=== PATIENT | female | born 1995 | race Caucasian/White ===

== ENCOUNTER 2020-12-05 07:47 | Outpatient (CLI) | payer OTHER, SELFPAY ==
--- NOTE | ~2020-12-05 | US_ITS ---
EXAMINATION: US abdomen complete DATE: 12/05/2020 09:41 INDICATION: Abdominal pain TECHNIQUE: Multiple grayscale and Doppler ultrasound images of the abdomen were obtained. COMPARISON: 02/01/2019 FINDINGS: The head, body, and tail of the pancreas are normal. The liver is normal with normal echoge nicity and echotexture. No surface nodularity. Normal hepatopetal flow in the main portal vein. A sto ne is present in the gallbladder. There is no pericholecystic fluid or gallbladder wall thickening. T he normal common bile duct measures 2 mm. There was no sonographic Li sign. The visualized portio ns of the aorta and inferior vena cava are normal. The right kidney measures 9.4 x 4.7 x 3.5 cm. The left kidney measures 11.6 x 4 x 4.1 cm. The kidneys demonstrate normal parenchymal echogenicity. There is no hydronephrosis. The spleen is normal in roberto carlos earance and measures 12.1 cm. IMPRESSION: 1. Cholelithiasis without evidence of cholecystitis. Reviewed, dictated and finalized at location A.
--- NOTE | ~2020-12-05 | US_ITS ---
EXAMINATION: US pelvic complete DATE: 12/05/2020 09:41 INDICATION: Abdominal pain TECHNIQUE: Multiple transabdominal sonographic images of the pelvis were obtained. COMPARISON: None. FINDINGS: The uterus measures 7.8 x 4.8 x 5.8 cm. The endometrial complex measures 7 mm. The right ov maine measures 3.4 x 1.5 x 2.1 cm. The left ovary measures 3.3 x 2.6 x 1.4 cm. There is normal vascular flow in the ovaries. There is no free fluid in the pelvis. IMPRESSION: 1. No sonographic correlate for the patient's symptoms. Reviewed, dictated and finalized at location A.
== END 2020-12-05 07:48 | disposition home or self-care (01) ==
LOC: ANHIMG 07:53
PROVIDERS: PCP Nurse Practitioner Family; Visit Provider Nurse Practitioner Family
DX: R10.9 Unspecified abdominal pain (principal); K80.20 Calculus of gallbladder without cholecystitis without obstruction
CPT/HCPCS: 76700; 76856

== ENCOUNTER 2021-04-29 15:48 | Emergency (ER) | payer OTHER, SELFPAY ==
[2021-04-29 15:55] VITALS: BP 112/60; PULSE 73; RESP 16; TEMP 37.1; O2SAT 100
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
== END 2021-04-29 16:58 | disposition home or self-care (01) ==
PROVIDERS: Emergency Provider Registered Nurse
DX: F41.9 Anxiety disorder, unspecified (principal); F32.A Depression, unspecified; F17.200 Nicotine dependence, unspecified, uncomplicated
CPT/HCPCS: 99213; G0463

== ENCOUNTER 2021-05-01 01:46 | Emergency (ER) | payer OTHER, SELFPAY ==
[2021-05-01 02:13] VITALS: BP 103/55; PULSE 69; RESP 18; O2SAT 100
--- NOTE | 2021-05-01 02:22 | ED.ANXIETY ---
HPI - Anxiety General Chief Complaint: Anxiety Stated Complaint: Panic attacks x2 Time Seen by Provider: 05/01/21 01:59 Source: patient Mode of arrival: ambulatory Limitations: no limitations History of Present Illness HPI narrative: Patient is a 25-year-old female complaining of having an anxiety attack which she describes as can't sleep, cannot breathe, my heart is racing, my arms are hurting, tingling started yesterday, was seen in urgent care was given sertraline. Patient states that she is had similar episodes in the past but usually will resolve on its own. Patient denies any suicidal or homicidal thoughts. Related Data Allergies Allergy/AdvReac Type Severity Reaction Status Date / Time Penicillins Allergy Intermediate rash Verified 05/01/21 02:29 Review of Systems Review of Systems: All systems reviewed & are unremarkable except as noted in HPI and below Constitutional: Constitutional: Denies body ache(s), Denies chills, Denies excessive sweating, Denies fatigue, Denies fever(s), Denies headache(s), Denies lethargy, Denies malaise, Denies weakness and Denies weight loss Eyes: Eyes: Denies blurry vision, Denies change in vision and Denies loss of vision ENT: Denies dizziness, Denies ear discharge, Denies headache(s), Denies lip swelling, Denies epistaxis, Denies nasal congestion, Denies neck pain, Denies throat swelling and Denies tongue swelling Cardiovascular: Cardiovascular: Denies chest pain, Denies chest pain at rest, Denies chest pain with activity, Denies diaphoresis, Denies rapid heart rate, Denies edema, Denies irregular heart rhythm, Denies lightheadedness, Denies palpitations, Denies dyspnea and Denies dyspnea on exertion Respiratory: Respiratory: Denies chest congestion, Denies cough, Denies hemoptysis, Denies dyspnea and Denies dyspnea on exertion Gastrointestinal: Gastrointestinal: Denies abdominal pain, Denies melena, Denies hematochezia, Denies diarrhea, Denies nausea, Denies vomiting and Denies hematemesis Musculoskeletal: Musculoskeletal: Denies abnormal gait, Denies deformity, Denies joint swelling, Denies limited range of motion, Denies neck pain and Denies numbness Neurologic: Denies Abnormal speech present, Denies abnormal gait, Denies confusion, Denies dizziness, Denies headache(s), Denies focal weakness, Denies loss of vision, Denies numbness, Denies Other visual disturbances, Denies Sensory deficit (Neuro) and Denies weakness Psychiatric: Psychiatric: Denies confusion, Denies depression, Denies auditory hallucinations, Denies homicidal ideation and Denies suicidal ideation Endocrine: Endocrine: Denies cold intolerance, Denies excessive sweating, Denies fatigue, Denies heat intolerance and Denies palpitations Hematologic/Lymphatic: Hematologic/Lymphatic: Denies easy bleeding and Denies easy bruising Allergic/Immunologic: Allergic/Immunologic: Denies lip swelling, Denies throat swelling and Denies tongue swelling PMFSH Past Medical History Medical History Anxiety and depression Surgical History Surgical History No history of previous surgery Family History Family History Sibling Depression Mother Anxiety Social History Social History Tobacco type: e-cigarettes/vaping Alcohol intake: current Alcohol use details: rare social Substance use type: does not use Additional living arrangements comments: with boyfriend and 2 children Gender identity (if verbalized by the patient): Female Exam Const: General: cooperative, healthy appearing, comfortable, no acute distress, well developed, alert and awake; No confusion Orientation/consciousness: oriented to person, oriented to place, oriented to time, patient oriented x3 and No confusion Limitations: no limita
[2021-05-01] MEDS: LORazepam (*CRX) 1 MG TABLET PO (02:41)
[2021-05-01 03:25] VITALS: BP 104/74; PULSE 68; RESP 16; O2SAT 100
== END 2021-05-01 03:30 | disposition home or self-care (01) ==
PROVIDERS: Emergency Provider Emergency Medicine
DX: F41.9 Anxiety disorder, unspecified (principal); F32.A Depression, unspecified; F17.290 Nicotine dependence, other tobacco product, uncomplicated
CPT/HCPCS: 81025; 99283; A9270

== ENCOUNTER 2022-08-19 13:17 | Emergency (ER) | payer OTHER, SELFPAY ==
--- NOTE | ~2022-08-19 | XR_ITS ---
EXAMINATION: XR chest 2V DATE: 08/19/2022 15:16 INDICATION: Cough and shortness of breath. TECHNIQUE: Frontal and lateral views of the chest were obtained. COMPARISON: None. FINDINGS: The chest demonstrates clear lungs without pneumonia, pleural effusion, or pneumothorax. Th e heart size is normal. IMPRESSION: 1. No acute cardiopulmonary disease. Reviewed, dictated and finalized at location A. [facility]
[2022-08-19 13:29] VITALS: BP 115/61; PULSE 84; RESP 12; TEMP 36.8; O2SAT 100
--- NOTE | 2022-08-19 15:07 | ED.ANXIETY ---
HPI - Anxiety General Chief Complaint: Anxiety Stated Complaint: panic attacks x3 weeks Time Seen by Provider: 08/19/22 13:39 History of Present Illness HPI narrative: Patient is a 26-year-old female with a history of anxiety presenting with multiple complaints. Patient states over the last several weeks she has been experiencing generalized malaise, fatigue, body aches. States that she has had intermittent muscle cramps especially in her arms. Also complains of bilateral ear and sinus pain with rhinorrhea. Patient states that she has had increasingly frequent panic attacks over the last 3 weeks. States that she has had panic attacks in the past but she has had increasing difficulty with coping with them. States that she has an appointment with a order fulfillment specialist next month. Complains of intermittent chest discomfort that is improved with deep breathing and changes in position. Denies exertional chest pain. Denies fevers, numbness or weakness, syncope, abdominal pain, vomiting, constipation, dysuria, leg swelling. Reports some diarrhea. Related Data Allergies Allergy/AdvReac Type Severity Reaction Status Date / Time Penicillins Allergy Intermediate rash Verified 05/01/21 02:29 Review of Systems Review of Systems: All systems reviewed & are unremarkable except as noted in HPI and below PMFSH Past Medical History Medical History Anxiety and depression Surgical History Surgical History No history of previous surgery Family History Family History Sibling Depression Mother Anxiety Social History Social History Tobacco type: e-cigarettes/vaping Alcohol intake: current Alcohol use details: rare social Substance use type: does not use Additional living arrangements comments: with boyfriend and 2 children Gender identity (if verbalized by the patient): Female Exam Narrative: GENERAL: Well-appearing, well-nourished, and in no acute distress. HEAD: Normocephalic, atraumatic. EYES: PERRLA and EOMI. ENT: Nares clear, no rhinorrhea or epistaxis. Mucous membranes moist. NECK: Supple. CHEST: Clear to auscultation. No respiratory distress. HEART: Regular rate and rhythm. No murmur heard. Normal peripheral pulses. ABDOMEN: Soft, nontender, nondistended, normal active bowel sounds. EXTREMITIES: Normal range of motion. No edema. SKIN: Warm, dry, no rash. NEURO: No focal deficits. Alert and oriented x3. PSYCH: Normal mood and affect. Course Vital Signs Vital signs: Vital Signs Temperature 98.2 F 08/19/22 13:29 Pulse Rate 84 08/19/22 13:29 Respiratory Rate 12 08/19/22 13:29 Blood Pressure 115/61 08/19/22 13:29 Pulse Oximetry 100 08/19/22 13:29 Oxygen Delivery Room Air 08/19/22 13:29 Temperature 98.8 F 08/19/22 17:10 Pulse Rate 70 08/19/22 17:10 Respiratory Rate 18 08/19/22 17:10 Blood Pressure 108/64 08/19/22 17:10 Pulse Oximetry 100 08/19/22 17:10 Oxygen Delivery Room Air 08/19/22 13:29 MDM - Anxiety MDM Narrative Medical decision making narrative: Patient is a 26-year-old female presenting with multiple complaints. Vitals within normal limits. Patient is well-appearing in no acute distress. Exam remarkable for the above. Blood work is unremarkable. Normal electrolytes and renal function. No leukocytosis or anemia. Chest x-ray without acute abnormalities. Patient is negative for COVID and influenza. Patient is resting comfortably on reevaluation. Discussed the reassuring work-up. Patient has follow-up with her PCP in 2 weeks which she was advised to keep. Appropriate return precautions given. Patient voiced understanding and was agreeable with plan. Discharged in stable condition. Differential Diag
[2022-08-19] MEDS: SODIUM CHLORIDE 0.9% IV 1,000 ML 999 ML IV CONT (15:25)
[2022-08-19 15:34] LABS: Basophils Percent Auto 0.7 % (0.2-1.2); Eosinophils Absolute Auto 0.1 K/mm3 (0-0.3); Eosinophils Percent Auto 1.5 % (0-4.4); Hematocrit 40.3 % (37.0-47.0); Hemoglobin 13.7 g/dL (12.0-15.0); Immature Granulocyte Absolute 0.02 K/mm3 (0.00-0.031); Immature Granulocyte Percent A 0.4 % (0-0.5); Lymphocytes Absolute Auto 1.89 K/mm3 (0.9-3.2); Lymphocytes Percent Auto 34.4 % (18.3-44.2); Mean Corpuscular Hemoglobin 31.1 pg (26-34); Mean Corpuscular Volume 91.4 fl (80-100); Mean Platelet Volume 10.5 fl (7.4-10.4); Monocytes Absolute Auto 0.5 K/mm3 (0.1-0.6); Monocytes Percent Auto 9.1 % (2.6-8.5); Neutrophils Percent Auto 53.9 % (45.5-73.1); Platelet Count Result 248 k/mm3 (150-375); Red Blood Count 4.41 M/mm3 (4.2-5.4); Red Cell Distribution Width 11.5 % (11.5-14.5); White Blood Count 5.5 K/mm3 (4.5-10.0)
[2022-08-19 15:59] LABS: Alanine Aminotransferase 39 U/L (6-35); Alkaline Phosphatase 51 U/L (38-126); Anion Gap 8 mmol/L (8-16); Aspartate Amino Transferase 39 U/L (14-36); Bilirubin,Total 1.4 mg/dL (0.2-1.3); Blood Urea Nitrogen 16 mg/dL (7-17); Calcium 9.3 mg/dL (8.4-10.2); Carbon Dioxide 26 mmol/L (22-30); Chloride 100 mmol/L (98-107); Estimated CRCL calculation 111 ml/min; Estimated Glomerular Filt Rate > 60; Glucose 84 mg/dL (65-110); Magnesium 2.2 mg/dL (1.6-2.3); Potassium 4.7 mmol/L (3.4-5.0); Sodium 134 mmol/L (137-145)
[2022-08-19 16:10] LABS: Influenza A QL RT-PCR Negative (Negative); Influenza B QL RT-PCR Negative (Negative); RSV RNA, RT-PCR Negative (Negative); SARS-CoV-2 RNA PCR Negative
[2022-08-19 17:10] VITALS: BP 108/64; PULSE 70; RESP 18; TEMP 37.1; O2SAT 100
== END 2022-08-19 17:14 | disposition home or self-care (01) ==
PROVIDERS: Emergency Provider Emergency Medicine
DX: R25.2 Cramp and spasm (principal); R53.81 Other malaise; F41.0 Panic disorder [episodic paroxysmal anxiety]; Z20.822 Contact with and (suspected) exposure to COVID-19
CPT/HCPCS: 36415; 71046; 80053; 83735; 84443; 85025; 87637; 96360; 99283; J7030

== ENCOUNTER 2022-08-25 00:50 | Emergency (ER) | payer OTHER, SELFPAY ==
[2022-08-25 00:52] VITALS: BP 112/78; PULSE 90; RESP 18; TEMP 36.3; O2SAT 100
--- NOTE | 2022-08-25 00:57 | ECG_ITS ---
Measurements Intervals [place] Rate: 84 P: 61 [place]: 197 QRS: 73 QRSD: 96 T: 50 QT: 370 QTc: 438 Interpretive Statements SINUS RHYTHM NONSPECIFIC T-WAVE ABNORMALITY COMPARED TO ECG 10/14/2018 11:03:08 NO SIGNIFICANT CHANGES Electronically Signed On 08-25-2022 16:18:39 [employer] by Lyle Escobedo M.D.
--- NOTE | 2022-08-25 02:35 | PC.NURSE ---
pt states she had several panic attacks over past few weeks because she has a lot going on. states tonight she had one had and had palpitations with it so it made attack worse. states she feels better now but was concerned because she has never had palpitations with them. states she doesn't take any meds for anxiety but has an appointment on 09/21 for an evaluation.
--- NOTE | 2022-08-25 03:10 | ED.GENADULT ---
HPI - General Adult General Chief complaint: Arrhythmia/Palpitations Stated complaint: palpitations, anxiety Time Seen by Provider: 08/25/22 02:59 History of Present Illness HPI narrative: Is a 26-year-old female who presents emergency department chief complaint of palpitations. The patient reports that she has history of anxiety and is scheduled to see a mental health professional later this month. The patient states that she has been having increased panic attacks and reports this evening she had an episode where she felt as though the world was giving out on her and felt as though her heart was beating out of her chest. There is no radiation to her arm. Related Data Allergies Allergy/AdvReac Type Severity Reaction Status Date / Time Penicillins Allergy Intermediate rash Verified 05/01/21 02:29 Review of Systems Review of Systems: A 10 system review of systems was completed on the patient and is negative except for what is stated in the HPI. Nursing and ancillary documentation was reviewed. [facility] Past Medical History Medical History Anxiety and depression Surgical History Surgical History No history of previous surgery Family History Family History Sibling Depression Mother Anxiety Social History Social History Tobacco type: e-cigarettes/vaping Alcohol intake: current Alcohol use details: rare social Substance use type: does not use Additional living arrangements comments: with boyfriend and 2 children Gender identity (if verbalized by the patient): Female Exam Narrative: GENERAL: Well-appearing, well-nourished, and in no acute distress. HEAD: Normocephalic, atraumatic. EYES: PERRLA and EOMI. ENT: Nares clear, no rhinorrhea or epistaxis. Mucous membranes moist. NECK: Supple. CHEST: Clear to auscultation. No respiratory distress. HEART: Regular rate and rhythm. No murmur heard. Normal peripheral pulses. ABDOMEN: Soft, nontender, nondistended, normal active bowel sounds. EXTREMITIES: Normal range of motion. No edema. SKIN: Warm, dry, no rash. NEURO: No focal deficits. Alert and oriented x3. PSYCH: Normal mood and affect. Course Vital Signs Vital signs: Vital Signs Temperature 36.3 C L 08/25/22 00:52 Pulse Rate 90 08/25/22 00:52 Respiratory Rate 18 08/25/22 00:52 Blood Pressure 112/78 08/25/22 00:52 Pulse Oximetry 100 08/25/22 00:52 Oxygen Delivery Room Air 08/25/22 00:52 Temperature 36.3 C L 08/25/22 00:52 Pulse Rate 90 08/25/22 00:52 Respiratory Rate 18 08/25/22 00:52 Blood Pressure 112/78 08/25/22 00:52 Pulse Oximetry 100 08/25/22 00:52 Oxygen Delivery Room Air 08/25/22 00:52 Medical Decision Making MDM Narrative Medical decision making narrative: EKG is sinus rhythm rate of [address] elevation or ST depression. Patient is currently asymptomatic. Patient does report that she has had significant anxiety the patient will be started on hydroxyzine in the emergency department Patient denies suicidal or homicidal ideation. Vital Signs Vital Signs: Vital Signs Temperature 36.3 C L 08/25/22 00:52 Pulse Rate 90 08/25/22 00:52 Respiratory Rate 18 08/25/22 00:52 Blood Pressure 112/78 08/25/22 00:52 Pulse Oximetry 100 08/25/22 00:52 Oxygen Delivery Room Air 08/25/22 00:52 Temperature 36.3 C L 08/25/22 00:52 Pulse Rate 90 08/25/22 00:52 Respiratory Rate 18 08/25/22 00:52 Blood Pressure 112/78 08/25/22 00:52 Pulse Oximetry 100 08/25/22 00:52 Oxygen Delivery Room Air 08/25/22 00:52 Discharge Plan Discharge Clinical Impression: Palpitations, Anxiety Patient Disposition: Home, Self-Care Condition: Stable Instructions: Antibiotic Form,
[2022-08-25 03:21] VITALS: BP 105/71; PULSE 72; RESP 16; O2SAT 100
== END 2022-08-25 03:26 | disposition home or self-care (01) ==
PROVIDERS: Emergency Provider Emergency Medicine; PCP Family Medicine
DX: R00.2 Palpitations (principal); F41.9 Anxiety disorder, unspecified; R94.31 Abnormal electrocardiogram [ECG] [EKG]; F17.290 Nicotine dependence, other tobacco product, uncomplicated
CPT/HCPCS: 93005; 99283

== ENCOUNTER 2022-11-01 15:18 | Emergency (ER) | payer OTHER, SELFPAY ==
[2022-11-01] VITALS (13 sets, daily range): BP systolic 104–122; BP diastolic 54–69; PULSE 85–110; RESP 13–31; TEMP 36.4–36.5; O2SAT 100
[2022-11-01] MEDS: ONDANSETRON INJ 4 MG/2 ML VIAL IV PUSH (16:16)
[2022-11-01] MEDS: SODIUM CHLORIDE 0.9% IV 1,000 ML 999 ML IV CONT (16:17)
[2022-11-01 16:25] LABS: Basophils Absolute Auto 0.1 K/mm3 (0.0-0.1); Basophils Percent Auto 0.5 % (0.2-1.2); Eosinophils Absolute Auto 0.1 K/mm3 (0-0.3); Eosinophils Percent Auto 0.7 % (0-4.4); Hemoglobin 13.5 g/dL (12.0-15.0); Immature Granulocyte Absolute 0.03 K/mm3 (0.00-0.031); Immature Granulocyte Percent A 0.3 % (0-0.5); Lymphocytes Absolute Auto 1.12 K/mm3 (0.9-3.2); Lymphocytes Percent Auto 9.5 % (18.3-44.2); Mean Corpuscular HGB Conc 33.8 g/dl (32-36); Mean Platelet Volume 10.3 fl (7.4-10.4); Monocytes Absolute Auto 0.9 K/mm3 (0.1-0.6); Neutrophils Absolute Auto 9.6 K/mm3 (1.3-6.7); Platelet Count Result 240 k/mm3 (150-375); Red Blood Count 4.35 M/mm3 (4.2-5.4); Red Cell Distribution Width 12.2 % (11.5-14.5); White Blood Count 11.8 K/mm3 (4.5-10.0)
[2022-11-01 16:33] LABS: Alanine Aminotransferase 19 U/L (6-35); Alkaline Phosphatase 49 U/L (38-126); Anion Gap 10 mmol/L (8-16); Aspartate Amino Transferase 33 U/L (14-36); Bilirubin,Total 1.2 mg/dL (0.2-1.3); Blood Urea Nitrogen 8 mg/dL (7-17); Calcium 8.7 mg/dL (8.4-10.2); Carbon Dioxide 27 mmol/L (22-30); Chloride 102 mmol/L (98-107); Estimated CRCL calculation 110 ml/min; Estimated Glomerular Filt Rate > 60; Glucose 86 mg/dL (65-110); Lipase 49 U/L (23-300); Potassium 3.9 mmol/L (3.4-5.0); Sodium 139 mmol/L (137-145)
--- NOTE | 2022-11-01 17:14 | ED.GENADULT ---
HPI - General Adult General Chief complaint: Anxiety Stated complaint: panic attack Time Seen by Provider: 11/01/22 15:54 History of Present Illness HPI narrative: Patient is a 27-year-old female who presents ER with an upset stomach and nausea. Patient reports she went out drinking last night for her birthday. She had 7 shots of alcohol and then several mixed drinks. She then felt bad today and had a panic attack despite taking her panic attack medication. She reports it was a bad event and she felt numb. She feels improved from the anxiety at this time but is still feeling nauseous and weak. No history of pancreatitis. Related Data Allergies Allergy/AdvReac Type Severity Reaction Status Date / Time Penicillins Allergy Intermediate rash Verified 11/01/22 17:21 Review of Systems Constitutional: Constitutional: Denies chills, Reports fatigue and Denies fever(s) ENT: Denies nasal congestion and Denies sore throat Respiratory: Respiratory: Denies cough and Denies dyspnea Gastrointestinal: Gastrointestinal: Reports abdominal pain, Reports nausea and Denies vomiting Psychiatric: Psychiatric: Reports anxiety PMFSH Past Medical History Medical History Anxiety and depression Surgical History Surgical History No history of previous surgery Family History Family History Sibling Depression Mother Anxiety Social History Social History Tobacco type: e-cigarettes/vaping Alcohol intake: current Alcohol use details: rare social Substance use type: does not use Additional living arrangements comments: with boyfriend and 2 children Gender identity (if verbalized by the patient): Female Exam Narrative: GENERAL: Well-appearing, well-nourished, and in no acute distress. HEAD: Normocephalic, atraumatic. ENT: Mucous membranes moist. CHEST: Clear to auscultation. No respiratory distress. HEART: Regular rate and rhythm. Normal peripheral pulses. ABDOMEN: Soft, nontender, nondistended. EXTREMITIES: Normal range of motion. No edema. SKIN: Warm, dry, no rash. NEURO: Alert and oriented x3. PSYCH: Normal mood and affect. Course Vital Signs Vital signs: Vital Signs Temperature 97.7 F 11/01/22 15:23 Pulse Rate 110 H 11/01/22 15:23 Respiratory Rate 20 11/01/22 15:23 Blood Pressure 122/54 L 11/01/22 15:23 Pulse Oximetry 100 11/01/22 15:23 Oxygen Delivery Room Air 11/01/22 15:23 Temperature 97.7 F 11/01/22 15:23 Pulse Rate 87 11/01/22 17:23 Respiratory Rate 17 11/01/22 17:23 Blood Pressure 109/60 11/01/22 17:23 Pulse Oximetry 100 11/01/22 17:23 Oxygen Delivery Room Air 11/01/22 15:23 Medical Decision Making Vital Signs Vital Signs: Vital Signs Temperature 97.7 F 11/01/22 15:23 Pulse Rate 110 H 11/01/22 15:23 Respiratory Rate 20 11/01/22 15:23 Blood Pressure 122/54 L 11/01/22 15:23 Pulse Oximetry 100 11/01/22 15:23 Oxygen Delivery Room Air 11/01/22 15:23 Temperature 97.7 F 11/01/22 15:23 Pulse Rate 87 11/01/22 17:23 Respiratory Rate 17 11/01/22 17:23 Blood Pressure 109/60 11/01/22 17:23 Pulse Oximetry 100 11/01/22 17:23 Oxygen Delivery Room Air 11/01/22 15:23 Lab Data 11/01/22 16:11 11/01/22 16:11 Labs: Lab Results 11/01/22 11/01/22 Range/Units 16:11 16:11 WBC 11.8 H (4.5-10.0) K/mm3 RBC 4.35 (4.2-5.4) M/mm3 Hgb 13.5 (12.0-15.0) g/dL Hct 40.0 (37.0-47.0) % MCV 92.0 (80-100) fl MCH 31.0 (26-34) pg MCHC 33.8 (32-36) g/dl RDW 12.2 (11.5-14.5) % Plt Count 240 (150-375) k/mm3 MPV 10.3 (7.4-10.4) fl Immature Gran % (Auto) 0.3 (0-0.5) % Neut % (Auto) 81.0 H (45.5-73.1) % Lymph % (Auto) 9
== END 2022-11-01 19:03 | disposition home or self-care (01) ==
PROVIDERS: Emergency Provider Emergency Medicine
DX: R11.0 Nausea (principal); F41.9 Anxiety disorder, unspecified; F17.290 Nicotine dependence, other tobacco product, uncomplicated
CPT/HCPCS: 36415; 80053; 83690; 85025; 96361; 96374; 99284; J2405; J7030

== ENCOUNTER 2023-02-12 07:49 | Emergency (ER) | payer OTHER, MEDICAID, SELFPAY ==
--- NOTE | ~2023-02-12 | XR_ITS ---
EXAMINATION: XR humerus LT DATE: 02/12/2023 08:41 INDICATION: Burning pain at the anterior proximal left humerus TECHNIQUE: AP and lateral views of the left humerus were obtained. COMPARISON: None. FINDINGS: Alignment is normal. No fracture. Joint spaces appear normal. Soft tissues are unremarkable . Visualized portions of the left lung are clear. IMPRESSION: 1. Negative left humerus radiographs. Reviewed, dictated and finalized at location [facility].
[2023-02-12 07:58] VITALS: BP 97/63; PULSE 90; RESP 18; TEMP 36.9; O2SAT 98
--- NOTE | 2023-02-12 08:08 | ED.EXTPRO ---
HPI - Extremity Problem General Chief complaint: Extremity Problem,Nontraumatic Stated complaint: Left arm pain Time Seen by Provider: 02/12/23 07:51 History of Present Illness HPI Narrative: 27-year-old female presented the emergency department for evaluation of 4 to 5 weeks of left arm pain. Patient describes pain in her left humerus. Patient states that she does not suspect it was due to an injury. Patient states he did take Tylenol and felt that helped the symptoms. Patient denies any radiation of the pain. Patient does have a primary care physician but has not yet followed up with them regarding these symptoms. Related Data Allergies Allergy/AdvReac Type Severity Reaction Status Date / Time Penicillins Allergy Intermediate rash Verified 02/12/23 08:09 Review of Systems Review of Systems: All systems reviewed & are unremarkable except as noted in HPI and below PMFSH Past Medical History Medical History Anxiety and depression Surgical History Surgical History No history of previous surgery Family History Family History Sibling Depression Mother Anxiety Social History Social History Tobacco type: e-cigarettes/vaping Alcohol intake: current Alcohol use details: rare social Substance use type: does not use Additional living arrangements comments: with boyfriend and 2 children Gender identity (if verbalized by the patient): Female Exam Narrative: APPEARANCE: Well appearing, no pain, no distress, well-nourished. HEAD: normocephalic, atraumatic. EYES: PERRLA/EOMI, conjunctivae clear. NOSE: Normal no drainage NECK: Supple. No adenopathy, no masses. RESPIRATORY: Airway patent, respirations nonlabored. Clear to auscultation bilaterally, no rales, rhonchi, wheezing. CARDIOVASCULAR: Regular rate and rhythm without murmurs rubs or gallops. ABDOMINAL: Soft, nontender, nondistended, normal bowel sounds MUSCULOSKELETAL: Moves all extremities. Left upper arm pain without tenderness to palpation NEURO: Alert. Cranial nerves II through XII intact. SKIN: Warm, dry. Normal Color Course Course Emergency Course: 27-year-old female presented the ED for evaluation of left arm pain. No clinical evidence of a DVT. No reproducible tenderness to palpation. X-ray was negative. No elevated CPK. Patient was afebrile with no leukocytosis and a stable hemoglobin. Patient was updated the results of her work-up. Patient was encouraged to take Tylenol and ibuprofen for pain control and to have close follow-up with her primary care physician. Vital Signs Vital signs: Vital Signs Temperature 98.5 F 02/12/23 07:58 Pulse Rate 90 02/12/23 07:58 Respiratory Rate 18 02/12/23 07:58 Blood Pressure 97/63 L 02/12/23 07:58 Pulse Oximetry 98 02/12/23 07:58 Oxygen Delivery Room Air 02/12/23 07:58 Temperature 98.5 F 02/12/23 07:58 Pulse Rate 73 02/12/23 10:16 Respiratory Rate 16 02/12/23 10:16 Blood Pressure 106/60 02/12/23 10:16 Pulse Oximetry 100 02/12/23 10:16 Oxygen Delivery Room Air 02/12/23 07:58 MDM - Extremity (Nontraumatic) Differential Diagnosis Differential diagnosis: Likely other (arm strain, DVT, fracture, contusion) Lab Data 02/12/23 08:16 Labs: Lab Results 02/12/23 Range/Units 08:16 WBC 4.0 L (4.5-10.0) K/mm3 RBC 4.00 L (4.2-5.4) M/mm3 Hgb 12.4 (12.0-15.0) g/dL Hct 37.2 (37.0-47.0) % MCV 93.0 (80-100) fl MCH 31.0 (26-34) pg MCHC 33.3 (32-36) g/dl RDW 12.3 (11.5-14.5) % Plt Count 217 (150-375) k/mm3 MPV 10.0 (7.4-10.4) fl Immature Gran % (Auto) 0.5 (0-0.5) % Neut % (Auto) 45.4 L (45.5-73.1) % Lymph % (Auto) 35.4 (18.3-44.2) % [place] % (Auto) 14.4 H
[2023-02-12 08:20] LABS: Basophils Absolute Auto 0.1 K/mm3 (0.0-0.1); Basophils Percent Auto 1.3 % (0.2-1.2); Eosinophils Absolute Auto 0.1 K/mm3 (0-0.3); Hematocrit 37.2 % (37.0-47.0); Hemoglobin 12.4 g/dL (12.0-15.0); Immature Granulocyte Absolute 0.02 K/mm3 (0.00-0.031); Immature Granulocyte Percent A 0.5 % (0-0.5); Lymphocytes Percent Auto 35.4 % (18.3-44.2); Mean Corpuscular HGB Conc 33.3 g/dl (32-36); Monocytes Absolute Auto 0.6 K/mm3 (0.1-0.6); Monocytes Percent Auto 14.4 % (2.6-8.5); Neutrophils Absolute Auto 1.8 K/mm3 (1.3-6.7); Neutrophils Percent Auto 45.4 % (45.5-73.1); Platelet Count Result 217 k/mm3 (150-375); Red Cell Distribution Width 12.3 % (11.5-14.5)
[2023-02-12 08:33] LABS: Creatine Kinase 82 U/L (30-135)
[2023-02-12 08:34] LABS: Prothrombin Time 13.1 Seconds (11.1-14.7)
[2023-02-12 08:35] LABS: Partial Thromboplastin Time 29.1 SECONDS (22.3-36.8)
[2023-02-12 10:16] VITALS: BP 106/60; PULSE 73; RESP 16; O2SAT 100
== END 2023-02-12 10:22 | disposition home or self-care (01) ==
PROVIDERS: Emergency Provider Emergency Medicine
DX: M79.622 Pain in left upper arm (principal); F17.290 Nicotine dependence, other tobacco product, uncomplicated
CPT/HCPCS: 36415; 73060; 82550; 85025; 85610; 85730; 99283

== ENCOUNTER 2023-02-14 19:21 | Emergency (ER) | payer OTHER, MEDICAID, SELFPAY ==
--- NOTE | 2023-02-14 19:33 | ED.GENADULT ---
HPI - General Adult General Chief complaint: Unspecified Stated complaint: body pain Time Seen by Provider: 02/14/23 19:37 Source: patient, RN notes reviewed and old records reviewed Mode of arrival: ambulatory Limitations: no limitations History of Present Illness HPI narrative: 27-year-old female presents to the [facility] generalized body aches and a concern for brain eating amoeba after getting water upper nose 17 days ago. Patient has a significant history of anxiety especially related to health issues. Patient states that she was reading an article and then remembered about getting the water upper nose at [employer] where she went swimming. States that she has had some generalized body aches. Denies fevers. Denies any chest pain or shortness of breath. Denies abdominal pain, nausea, vomiting or diarrhea. Denies any blurry vision or change in vision. Denies any headaches. Reports an occasional ear ache. Has taken ibuprofen with some relief. Reports having an appointment with her primary care provider on [facility] in [place] per Medical record Was seen in the ER 02/12, 2 days ago for arm pain. Related Data Allergies Allergy/AdvReac Type Severity Reaction Status Date / Time Penicillins Allergy Intermediate rash Verified 02/14/23 19:49 Review of Systems Review of Systems: All systems reviewed & are unremarkable except as noted in HPI and below Constitutional: Constitutional: Reports as per HPI and Reports body ache(s) Eyes: Eyes: Reports no additional eye complaints ENT: Reports system reviewed and no additional complaints, except as documented Cardiovascular: Cardiovascular: Reports no additional cardiovascular complaints, Denies chest pain and Denies dyspnea Respiratory: Respiratory: Reports no additional respiratory complaints, Denies chest congestion, Denies cough and Denies dyspnea Gastrointestinal: Gastrointestinal: Reports no additional gastrointestinal complaints, Denies abdominal pain, Denies nausea and Denies vomiting Musculoskeletal: Musculoskeletal: Reports no additional musculoskeletal complaints Integumentary/Breasts: Skin/Breast: Reports system reviewed and no additional complaints, except as docu Neurologic: Reports system reviewed and no additional complaints, except as documented Psychiatric: Psychiatric: Reports no additional psychiatric complaints Allergic/Immunologic: Allergic/Immunologic: Reports no additional allergic/immunologic complaints PMFSH Past Medical History Medical History Anxiety and depression Surgical History Surgical History No history of previous surgery Family History Family History Sibling Depression Mother Anxiety Social History Social History Tobacco type: e-cigarettes/vaping Alcohol intake: current Alcohol use details: rare social Substance use type: does not use Additional living arrangements comments: with boyfriend and 2 children Gender identity (if verbalized by the patient): Female Comments At the time of my signature, I reviewed and agree with the nursing past medical, surgical, social, and family history. There is no relevant family history pertinent to the patient complaint. Exam Const: General: cooperative, healthy appearing, comfortable, no acute distress, well developed, alert and well nourished Nutritional Appearance: well nourished Orientation/consciousness: patient oriented x3 Limitations: no limitations HENMT: Head: normal to inspection Ears: hearing grossly normal bilaterally, external ears normal, TM's normal bilaterally and EAC's normal Face/Nose/Sinus: Normal external nose present, Normal nares present, Normal nasal mucous membranes and turbinates present, No nasal discharge present, nor
[2023-02-14 19:37] VITALS: BP 110/56; PULSE 92; RESP 18; TEMP 36.7; O2SAT 100
== END 2023-02-14 19:50 | disposition home or self-care (01) ==
PROVIDERS: Emergency Provider Nurse Practitioner
DX: F41.9 Anxiety disorder, unspecified (principal); R52 Pain, unspecified; F17.290 Nicotine dependence, other tobacco product, uncomplicated
CPT/HCPCS: 99211; G0463

== ENCOUNTER 2023-02-15 16:57 | Emergency (ER) | payer OTHER, MEDICAID, SELFPAY ==
[2023-02-15 16:59] VITALS: BP 119/65; PULSE 87; RESP 18; TEMP 36.5; O2SAT 99
--- NOTE | 2023-02-15 18:39 | ED.GENADULT ---
[facility] - General Adult General Chief complaint: Anxiety Stated complaint: anxiety Time Seen by Provider: 02/15/23 17:36 Source: patient Mode of arrival: ambulatory Limitations: no limitations History of Present Illness HPI narrative: This is a 27-year-old female who presents to the ED with chief complaint of anxiety for the past couple of weeks. She states is been getting worse over the past couple of days. She states she normally takes hydroxyzine but has been out in did not have a follow-up appointment until later this week. She states that she called them today and was able to get it moved to tomorrow. Patient states that she has a history of [place] syndrome and has not been eating or drinking much lately. She states that after she ate and drink here in the hospital she started to feel much better. Denies any SI or HI. Denies hallucinations. Related Data Allergies Allergy/AdvReac Type Severity Reaction Status Date / Time Penicillins Allergy Intermediate rash Verified 02/15/23 17:09 Review of Systems Review of Systems: All systems as dictated in [facility] Past Medical History Medical History Anxiety and depression Surgical History Surgical History No history of previous surgery Family History Family History Sibling Depression Mother Anxiety Social History Social History Tobacco type: e-cigarettes/vaping Alcohol intake: current Alcohol use details: rare social Substance use type: does not use Additional living arrangements comments: with boyfriend and 2 children Gender identity (if verbalized by the patient): Female Exam Narrative: GENERAL: Well-appearing, well-nourished, and in no acute distress. HEAD: Normocephalic, atraumatic. EYES: PERRLA and EOMI. ENT: Nares clear, no rhinorrhea or epistaxis. Mucous membranes moist. Oropharynx without tonsillar hypertrophy exudate or other lesions. NECK: Supple. No adenopathy or masses. CHEST: No respiratory distress. Clear to auscultation. No wheezes rales or rhonchi HEART: Regular rate and rhythm. No murmur heard. Normal peripheral pulses. ABDOMEN: Soft, nontender, nondistended, normal active bowel sounds. MSK: Normal range of motion. No edema. SKIN: Warm, dry, no rash. NEURO: Alert and oriented x3. No focal deficits. PSYCH: Normal mood and affect. Course Vital Signs Vital signs: Vital Signs Temperature 97.7 F 02/15/23 16:59 Pulse Rate 87 02/15/23 16:59 Respiratory Rate 18 02/15/23 16:59 Blood Pressure 119/65 02/15/23 16:59 Pulse Oximetry 99 02/15/23 16:59 Oxygen Delivery Room Air 02/15/23 16:59 Temperature 97.7 F 02/15/23 16:59 Pulse Rate 87 02/15/23 16:59 Respiratory Rate 20 02/15/23 18:52 Blood Pressure 119/65 02/15/23 16:59 Pulse Oximetry 99 02/15/23 16:59 Oxygen Delivery Room Air 02/15/23 16:59 Medical Decision Making MDM Narrative Medical decision making narrative: This is a 27-year-old female who presents to the ED with chief complaint of anxiety. She is out of her hydroxyzine. Vitals are normal. Exam is benign. Her symptoms have resolved upon arrival. She is requesting a refill of hydroxyzine. She has a follow-up with her prescribing doctor for this tomorrow. I will give her a prescription for 10 more pills of the hydroxyzine. She will be discharged in stable condition. Return precautions given and supportive measures discussed. Patient is understanding and agreeable with plan for discharge and follow-up with PCP. Vital Signs Vital Signs: Vital Signs Temperature 97.7 F 02/15/23 16:59 Pulse Rate 87 02/15/23 16:59 Respiratory Rate 18 02/15/23 16:59 Blood Pressure 119/65 02/15/23 16:59 Pulse Oximetry 99 02/15/23 16:59 Oxygen D
[2023-02-15 18:52] VITALS: RESP 20
== END 2023-02-15 18:51 | disposition home or self-care (01) ==
PROVIDERS: Emergency Provider Physician Assistant; PCP Nurse Practitioner Family
DX: F41.1 Generalized anxiety disorder (principal); F17.290 Nicotine dependence, other tobacco product, uncomplicated
CPT/HCPCS: 99281

== ENCOUNTER 2023-03-10 00:36 | Day surgery (SDC) | payer OTHER, MEDICAID, SELFPAY ==
[2023-03-05 11:12] VITALS: BMI 22.6
--- NOTE | 2023-03-05 11:20 | PC.NURSE ---
Report to the Outpatient Waiting Room, entrance under the green pavilion located off [facility], at time 1200 on date 03/10/23. Planned Procedure Time: 1400. Time changes happen often and if your time is changed the preop area will call you the afternoon before. - You and your visitor will be asked to self-screen and do not enter if you have any COVID symptoms. - A mask is optional within the hospital at this time. Patients may have clear liquids (water, carbonated beverages, clear teas, apple juice) until 3 hours prior to surgery with a maximum of 20 ounces. - No food from midnight until time of surgery - Infants may have breast milk until 4 hours before surgery, infant formula 6 hours prior to surgery. - Children will be allowed to drink immediately following surgery. If applicable, please bring a bottle or sippy cup to assist with drinking. Juice, water, soda, and popsicles are readily available. For infants on formula, please bring formula the day of surgery. Pacifiers are allowed. Take the following medications with a SIP of water the morning of surgery: HYDROXYZINE DO NOT STOP ANY OF YOUR OTHER PRESCRIPTION MEDICATIONS PRIOR TO SURGERY ?EXCEPT THE FOLLOWING Medications to discontinue per physician: N/A Date to take last dose: N/A Please no make-up, nail mozambican, hairspray, perfume, deodorant, or body powder the day of surgery. No jewelry (including any body piercings) or valuables the day of surgery, leave them at home. Please take a shower or bath the night before, or the morning of, surgery with an antibacterial soap. Wear comfortable, loose fitting clothing. - Jewelry must be removed prior to entering the operating room. Rings and piercings that are not removed may be cut off. - The hospital will not accept responsibility for valuables. - Please leave all valuables, including medications, at home the day of surgery. If you are going home after surgery, a licensed drivers license examiner must drive you home. - NO public transportation without another adult if you receive anesthesia. - We recommend that an adult stay with you for 24 hours following discharge. - We also recommend that you do not drive, make important decision, drink alcoholic beverages, or take any drugs that were not prescribed by your health care provider for at least 24 hours after your discharge time. Follow any additional instructions given to you from your surgeon. If you or anyone in your household have experienced Covid symptoms in the past week, please notify your surgeon or the nurse liaison at the phone number below for possible testing. Telephone instructions given to DANNY BANSAL and asked if any additional questions and then verbalized understanding. Patient advised to call surgeon office or pre surgery nurse liaison [phone] if any additional questions.
[2023-03-10] VITALS (8 sets, daily range): BP systolic 99–127; BP diastolic 61–74; PULSE 52–96; RESP 12–16; TEMP 36.2–37.1; O2SAT 99–100
--- NOTE | 2023-03-10 09:29 | P.PNAN_ITS ---
Anes - Initial Pre Proc Eval Procedure: Operation Date: 03/10/23 14:00 Proposed Procedures p Bilateral Laparoscopic Salpingectomy, Hysteroscopy with Chaya Endometrial Ablation - Samy Ibarra MD Date/Time: 03/10/23 09:29 Surgeon: Samy Ibarra MD Pre Op Diagnosis: Female Serilization, Menorrhagia Patient Data Age: 27 Gender: F Height: 1.65 m Weight: 61.7 kg Allergies Allergy/AdvReac Type Severity Reaction Status Date / Time Penicillins Allergy Intermediate rash Verified 03/10/23 12:16 Home Medications Medication Instructions Recorded Confirmed Type hydroxyzine HCl 25 mg tablet 25 mg PO TID PRN Anxiety 03/05/23 03/10/23 History Patient hx anesthesia problems: none Family hx anesthesia problems: none Results Review: All pre-operative results and documents have been reviewed as part of the pre- operative evaluation. [facility] Past Medical History Medical History (Updated 03/10/23 @ 09:38 by Lucio Escalera DO) ADHD Anxiety and depression Surgical History Surgical History No history of previous surgery Family History Family History Sibling Depression Mother Anxiety Social History Social History Smoking status: Current every day smoker Tobacco type: e-cigarettes/vaping Alcohol intake: current Alcohol use details: 2/MONTH Substance use: never Substance use type: does not use Living arrangements: with family Additional living arrangements comments: with boyfriend and 2 children Gender identity (if verbalized by the patient): Female Spiritual care concerns: No Anes - Eval Final PreProcedure Day of Procedure 03/10/23 09:29 Patient weight: normal Heart: regular rate and rhythm Lungs: clear to auscultation and normal air movement Airway: Mallampati scale class II Neurological: alert and oriented Last oral intake: >/= 8 hours ASA classification: II Emergent: no Anesthetic plan: proceed Anesthesia type and monitoring: general ETT and standard monitoring Results Review: All pre-operative results and documents have been reviewed as part of the pre- operative evaluation. Informed Consent: The patient's anesthetic plan and its attendant risks and benefits were discussed with the patient/family/POA. Questions were solicited and answers provided to the satisfaction of the patient/family/POA.
[2023-03-10] MEDS: ACETAMINOPHEN 500 MG TABLET 1000 MG PO (13:00)
[2023-03-10] MEDS: KETOROLAC 15 MG/ML VIAL (*BKC) IV PUSH (13:01)
[2023-03-10] MEDS: LACTATED RINGERS 1,000 ML 30 ML IV CONT ×2 (13:10→14:11)
--- NOTE | 2023-03-10 13:37 | WPDHPUPDATE1 ---
History and Physical Update Update Date/Time: 03/10/23 13:37 History and Physical has been reviewed, including an updated exam of the patient. There are NO changes in the patient's condition. Risks, benefits, and alternatives have been discussed and questions answered. Patient agrees to proceed with procedure.
--- NOTE | 2023-03-10 14:15 | P.OP_ITS ---
Procedure Note - Detailed Date of Procedure 03/10/23 Pre-op Diagnosis Female Serilization, Menorrhagia Post-op Diagnosis Same Procedure Performed Laparoscopic bilateral salpingectomy with endometrial ablation and hysteroscopy. Surgeon Samy Ibarra MD Anesthesia General Indications Menorrhagia, female sterilization Description of Procedure Patient was taken the operating room. She has prepped draped in the dorsal lithotomy position after induction of general anesthesia. A 5 mm abdominal incision was made in left upper quadrant of the abdomen with scalpel. A 5 mm trocars inserted the intra-abdominal cavity under direct visualization of the scope. Pneumoperitoneum was achieved. A 5 mm periumbilical incision was made using a scalpel on the abdominal scan. A 5 mm trocar was inserted the intra- abdominal cavity under visualization of the scope. A 5 mm incision made left lower quadrant of the abdomen. A 5 mm trocar was inserted the intra-abdominal cavity and direct visualization of the scope. The bilateral fallopian tubes were removed. The paratubal tissue in the area of the uterus was grasped with the LigaSure cautery and transected after being cauterized. The paratubal tissue from the ovary to the uterine cornu was cauterized and transected with LigaSure cautery. This was all done in a bilateral fashion. The tube was transected at the area of the uterine cornua and the tubes was removed through the 5 mm trocar site. The pneumoperitoneum was reduced. The trocars were removed. The skin was closed with subcuticular 4 Monocryl and covered with Dermabond. Our attention was then turned to the endometrial ablation portion of the p rocedure. A speculum was placed in the vagina. The cervix was grasped with a tenaculum. The cervix was dilated to approximately 8 mm with Gaviria dilators. The hysteroscope was inserted. And the below findings were noted. All of the intrauterine surfaces were curettaged with a medium-size curette and the specimens were collected. Measurements of the cervix were taken using the uterine sound and the hysteroscope. The intrauterine cavity measurements were entered into the handpiece. The device was inserted into the intrauterine cavity and the array was expanded. The balloon cuff was inflated. When an adequate seal was formed the safety and energy cycles were initiated and completed. The array was collapsed, the balloon was deflated. The insert was withdrawn. The hysteroscope was reinserted and a well desiccated intrauterine cavity was observed. The patient was taken recovery room stable condition. Sponge lap and needle counts were correct x2. She tolerated the procedure well. Pathology Yes Complications No immediate complications Condition Stable Disposition PACU
[2023-03-10] MEDS: fentaNYL CITRATE INJ (*CRX) 100 MCG/2 ML VIAL 25 MCG IV PUSH ×2 (14:19→14:25)
== END 2023-03-10 16:00 | disposition home or self-care (01) ==
PROVIDERS: PCP Nurse Practitioner Family; Visit Provider Obstetrics & Gynecology
PROC: 0UDB8ZZ Extraction of Endometrium, Via Natural or Artificial Opening Endoscopic (ICD-10-PCS; CPT 58558; principal; 2023-03-10 14:00)
DX: Z30.2 Encounter for sterilization (principal); N92.0 Excessive and frequent menstruation with regular cycle; F41.8 Other specified anxiety disorders; F17.290 Nicotine dependence, other tobacco product, uncomplicated
CPT/HCPCS: 58563; 58661; 88302; A9270; J1100; J1170; J1885; J2250; J2405; J2704; J3010; J7120

== ENCOUNTER 2023-06-04 22:11 | Emergency (ER) | payer OTHER, MEDICAID, SELFPAY ==
--- NOTE | ~2023-06-04 | CT_ITS ---
EXAMINATION: CT abdomen pelvis w con DATE: 06/04/2023 23:45 INDICATION: Abdominal pain, nausea TECHNIQUE: Computed tomography (CT) of the abdomen and pelvis was performed with 100 CC Omnipaque 350 intravenous contrast. Automated exposure control and iterative reconstruction technique were employe d. Exam dose: 294.36 mGy-cm total exam DLP. COMPARISON: 12/05/2020 pelvic ultrasound 12/05/2020 complete abdominal ultrasound FINDINGS: The lung bases are clear. Normal heart size. No pericardial or pleural effusion. Multiple gallstones are noted. The gallbladder is relatively contracted. Gallbladder wall thickness i s within normal range. No pericholecystic fluid or fat stranding is noted. No bile duct or pancreatic duct dilatation is detected. No hepatic, splenic, pancreatic, and adrenal or renal space-occupying mass lesion is detected. No urinary tract calculus or hydroureteronephrosis is detected. Bilateral calcified pelvic phlebolith s. Normal caliber of the abdominal aorta. No intraperitoneal or retroperitoneal or pelvic mass lesion or adenopathy or ascites. The uterus, adnexal areas and urinary bladder are unremarkable. Normal appendix. No bowel obstruction, bowel wall thickening, pneumatosis or intraperitoneal free air is detected. Small fat-containing umbilical hernia. Included skeletal structures are unremarkable. IMPRESSION: Cholelithiasis Normal appendix Reviewed, dictated and finalized at [facility]. Reviewed, dictated and finalized at location [facility]. [facility]
[2023-06-04 22:12] VITALS: BP 118/68; PULSE 77; RESP 14; TEMP 36.6; O2SAT 100
[2023-06-04 22:34] VITALS: O2SAT 100
[2023-06-04 22:35] VITALS: BP 110/67; O2SAT 100
[2023-06-04 22:45] VITALS: O2SAT 100
[2023-06-04 22:46] VITALS: BP 107/69; O2SAT 100
[2023-06-04 22:56] LABS: Basophils Absolute Auto 0.1 K/mm3 (0.0-0.1); Basophils Percent Auto 0.8 % (0.2-1.2); Eosinophils Absolute Auto 0.2 K/mm3 (0-0.3); Hematocrit 39.7 % (37.0-47.0); Hemoglobin 12.9 g/dL (12.0-15.0); Immature Granulocyte Absolute 0.02 K/mm3 (0.00-0.031); Immature Granulocyte Percent A 0.3 % (0-0.5); Lymphocytes Absolute Auto 1.93 K/mm3 (0.9-3.2); Lymphocytes Percent Auto 30.6 % (18.3-44.2); Mean Corpuscular HGB Conc 32.5 g/dl (32-36); Mean Corpuscular Hemoglobin 30.6 pg (26-34); Mean Corpuscular Volume 94.3 fl (80-100); Mean Platelet Volume 10.5 fl (7.4-10.4); Monocytes Absolute Auto 0.7 K/mm3 (0.1-0.6); Monocytes Percent Auto 11.1 % (2.6-8.5); Neutrophils Absolute Auto 3.4 K/mm3 (1.3-6.7); Neutrophils Percent Auto 54.2 % (45.5-73.1); Platelet Count Result 257 k/mm3 (150-375); Red Blood Count 4.21 M/mm3 (4.2-5.4); White Blood Count 6.3 K/mm3 (4.5-10.0)
[2023-06-04 23:08] LABS: Alanine Aminotransferase 15 U/L (6-35); Albumin Level 4.9 g/dL (3.5-5.1); Alkaline Phosphatase 45 U/L (38-126); Anion Gap 11 mmol/L (8-16); Aspartate Amino Transferase 28 U/L (14-36); Bilirubin,Total 1.3 mg/dL (0.2-1.3); Blood Urea Nitrogen 15 mg/dL (7-17); Carbon Dioxide 26 mmol/L (22-30); Chloride 102 mmol/L (98-107); Estimated CRCL calculation 68 ml/min; Estimated Glomerular Filt Rate > 60; Glucose 89 mg/dL (65-110); Lipase 95 U/L (23-300); Potassium 3.6 mmol/L (3.4-5.0); Sodium 139 mmol/L (137-145)
[2023-06-04 23:25] LABS: Appearance Urine Clear (Clear); Bacteria Urine None Seen /hpf; Bilirubin Urine Negative (Negative); Blood Urine Negative (Negative); Color Urine Yellow (Yellow); Glucose Urine UA Negative (Negative); Ketones Urine Trace mg/dL (Negative); Leukocyte Esterase Ur 1+ LEU/UL (Negative); Need Manual Microscopic Reviewed; Nitrate Urine Negative (Negative); Non Pathogenic Casts 0-2; Protein Urine Negative (Negative); RBC Urine 0-2 /hpf (0-2); Specific Grav Ur 1.018 (1.001-1.035); Squamous Epithelial Cell Urine Occasional /hpf (Few); WBC Urine 0-5 /hpf; pH Urine 6.5 (5.0-9.0)
[2023-06-04 23:27] LABS: Add Urine Microscopic? YES
--- NOTE | 2023-06-04 23:41 | PC.NURSE ---
Patient in CT at this time.
[2023-06-04 23:55] VITALS: O2SAT 100
[2023-06-05 00:05] VITALS: O2SAT 100
--- NOTE | 2023-06-05 00:09 | ED.ABDPAIN ---
HPI - Abdominal Pain General Chief Complaint: Abdominal Pain Stated Complaint: abd pain Time Seen by Provider: 06/04/23 22:31 Source: patient Mode of arrival: ambulatory Limitations: no limitations History of Present Illness HPI narrative: This is a 27 year old female that presents to the ER for epigastric abdominal pain. Ongoing over the last couple of days. Associated with nausea and decreased appetite. Denies fever, vomiting, diarrhea, dysuria or hematuria. Related Data Home Medications Medication Instructions Recorded Confirmed spironolactone 25 mg tablet mg 06/04/23 Allergies Allergy/AdvReac Type Severity Reaction Status Date / Time Penicillins Allergy Intermediate rash Verified 06/04/23 22:28 Review of Systems Review of Systems: CONSTITUTIONAL: Denies fever GASTROINTESTINAL: Reports abdominal pain, nausea. Denies vomiting, or diarrhea. GENITOURINARY: Denies dysuria or hematuria. All systems reviewed & are unremarkable except as noted in HPI and below PMFSH Past Medical History Medical History (Updated 06/05/23 @ 00:16 by Kindra Riley PA-C) ADHD Anxiety and depression Family History Family History Sibling Depression Mother Anxiety Social History Social History Smoking status: Current every day smoker Tobacco type: e-cigarettes/vaping Alcohol intake: current Alcohol use details: 2/MONTH Substance use: never Substance use type: does not use Living arrangements: with family Additional living arrangements comments: with boyfriend and 2 children Gender identity (if verbalized by the patient): Female Sexual Orientation (if Verbalized by the Patient): Straight or Heterosexual Spiritual care concerns: No Exam Narrative: GENERAL: Well-appearing, well-nourished, and in no acute distress. HEAD: Normocephalic, atraumatic. EYES: EOMI. CHEST: Clear to auscultation. No respiratory distress. No wheezes rales or rhonchi HEART: Regular rate and rhythm. No murmur heard. Normal peripheral pulses. ABDOMEN: Soft, nondistended, normal active bowel sounds. Mild tenderness to palpation in the epigastrium and right upper quadrant, without guarding EXTREMITIES: Normal range of motion. No edema. SKIN: Warm, dry, no rash. NEURO: No focal deficits. Alert and oriented x3. PSYCH: Normal mood and affect Course Course Emergency Course: Patient updated on workup and agrees with plan of care Vital Signs Vital signs: Vital Signs Temperature 97.9 F 06/04/23 22:12 Pulse Rate 77 06/04/23 22:12 Respiratory Rate 14 06/04/23 22:12 Blood Pressure 118/68 06/04/23 22:12 Pulse Oximetry 100 06/04/23 22:12 Oxygen Delivery Room Air 06/04/23 22:12 Temperature 97.9 F 06/04/23 22:12 Pulse Rate 77 06/05/23 00:19 Respiratory Rate 20 06/05/23 00:19 Blood Pressure 104/68 06/05/23 00:19 Pulse Oximetry 100 06/05/23 00:19 Oxygen Delivery Room Air 06/04/23 22:12 MDM - Abdominal Pain MDM Narrative Medical decision making narrative: Patient presents to the emergency department for epigastric abdominal pain. Ongoing over the last couple days. Patient is afebrile and nontoxic appearing. Her vitals are stable. Abdominal exam is benign. CBC and metabolic panel without concerning findings. Lipase is normal. UA without evidence of infection. Bedside test is negative. CT scan abdomen and pelvis shows cholelithiasis. Patient was updated on workup. Given Zofran and Pepcid in the ED with relief. Was instructed on trial of low-fat diet. Given general surgery for follow up. She was given warnings to return to the ER Differential Diagnosis Differential diagnosis: Likely pancreatitis and other ( gastritis, esophagitis, GERD, biliary colic) Lab Data Attestation: I reviewed the patient's lab results. 06/04/23 22:49 06/04/23 22:49
[2023-06-05 00:15] VITALS: O2SAT 100
[2023-06-05 00:16] VITALS: BP 104/68; O2SAT 100
[2023-06-05 00:19] VITALS: BP 104/68; PULSE 77; RESP 20; O2SAT 100
[2023-06-05] MEDS: FAMOTIDINE 20 MG/2 ML VIAL IV PUSH (00:20)
[2023-06-05] MEDS: ONDANSETRON INJ 4 MG/2 ML VIAL IV PUSH (00:20)
[2023-06-05 00:30] VITALS: O2SAT 100
[2023-06-05 01:14] VITALS: BP 104/64; PULSE 75; RESP 19; O2SAT 100
== END 2023-06-05 01:22 | disposition home or self-care (01) ==
PROVIDERS: Emergency Provider Physician Assistant; PCP Nurse Practitioner Family
DX: R10.13 Epigastric pain (principal); F17.290 Nicotine dependence, other tobacco product, uncomplicated; K80.20 Calculus of gallbladder without cholecystitis without obstruction
CPT/HCPCS: 36415; 74177; 80053; 81001; 81025; 83690; 85025; 96374; 96375; 99284; J2405; Q9967

== ENCOUNTER 2024-07-22 09:34 | Outpatient (CLI) | payer OTHER, SELFPAY ==
[2024-07-22 10:37] LABS: Anion Gap 7 mmol/L (4-12); Blood Urea Nitrogen 18 mg/dL (7-17); Calcium 8.2 mg/dL (8.4-10.2); Carbon Dioxide 27 mmol/L (22-30); Chloride 106 mmol/L (98-107); Estimated Glomerular Filt Rate > 60; Glucose 89 mg/dL (65-110); Potassium 4.4 mmol/L (3.4-5.0); Sodium 140 mmol/L (137-145)
[2024-07-22 10:40] LABS: Alanine Aminotransferase 44 U/L (6-35); Albumin Level 4.1 g/dL (3.5-5.1); Alkaline Phosphatase 42 U/L (38-126); Amylase 56 U/L (30-110); Aspartate Amino Transferase 38 U/L (14-36); Bilirubin,Total 1.1 mg/dL (0.2-1.3); Lipase 76 U/L (23-300)
== END 2024-07-22 09:35 | disposition home or self-care (01) ==
PROVIDERS: Anesthesiology; PCP Nurse Practitioner Family; Visit Provider Surgery
DX: K80.10 Calculus of gallbladder with chronic cholecystitis without obstruction (principal); Z79.899 Other long term (current) drug therapy
CPT/HCPCS: 36415; 80048; 80076; 82150; 83690

== ENCOUNTER 2025-03-11 09:39 | Emergency (ER) | payer OTHER, SELFPAY ==
--- OUTSIDE RECORDS SUMMARY | 2025-03-11 09:41 | XMS_ITS | Patient Health Record ---
Author Organization [facility] [employer] [facility] Address [address] [place] [address] Care Team Providers Care Channel Rougher Name Role Phone Lester Hartman Unavailable [phone] Reason For Referral No Information Medications Medication SIG (Take, Route, Frequency, Duration) Notes Start Date End Date Status Amphetamine-Dextroamphet ER 10 MG Capsule Extended Release 24 Hour Oral 12/10/2022 Active hydrOXYzine HCl 25 MG Tablet Oral 12/10/2022 Active Ondansetron 4 MG Tablet Disintegrating Oral 12/10/2022 Active Social History Social History Additional Details Category Social Info Options Details Migrated Social History Migrated Social History Alcohol Intake: Occasional 09/21/2022,Tobacco Years: Former smoker 09/21/2022 Plan Of Treatment No Information Insurance Providers Payer Name Payer Address Payer Phone Subscriber Number Group Number Insured Name Patient Relationship to Insured Coverage Start Date Coverage End Date [employer] - [address] [place] [address] [id number] RACH BANSAL Self - patient is the insured
[2025-03-11 09:46] VITALS: BP 121/70; PULSE 95; RESP 18; TEMP 36.4; O2SAT 100
--- NOTE | 2025-03-11 09:50 | ED.FEMALEGU ---
HPI - Female Genitourinary General Chief complaint: Urogenital-Female Stated complaint: std testing Patient presents to the office with complaints of vaginal irritation, vaginal itching, occasional spotting over the last week. Patient reports she was very intoxicated about 1 week ago and did have probable unprotected sex with a different partner. Patient does note over the last week she has been significantly worried about this and has not been taking her control as directed which she believes could be part of the spotting that is just very concerned in general. Patient believes that the itching and irritation could also be a vaginal yeast infection which she does have frequently but denies any discharge at this time. Denies pelvic pain, vaginal discharge, bleeding with urination, burning with urination, lower back pain, flank pain, abdominal pain, nausea, vomiting, diarrhea. Related Data Home Medications ?Medication ?Instructions ?Recorded ?Confirmed ?Last Taken ?Type CREATENE See Rx Instructions BYMOUTH DAILY 07/18/24 08/09/24 07/23/24 History multivitamin (Daily-Romelia tablet) 1 tablet PO DAILY 07/18/24 08/09/24 07/23/24 History vit no.95-ferrous 1 tablet PO DAILY 07/18/24 08/09/24 07/23/24 History fumarate 28 mg-folic acid 800 mcg tablet ( Multivitamins) drospirenone 3 mg-ethinyl tablet 03/11/25 Unknown History estradiol 0.02 mg tablet Allergies Allergy/AdvReac Type Severity Reaction Status Date / Time Penicillins Allergy Intermediate rash Verified 03/11/25 09:49 Review of Systems Constitutional: Constitutional: Reports as per HPI, Denies chills and Denies fatigue Eyes: Eyes: Reports no additional eye complaints Cardiovascular: Cardiovascular: Reports no additional cardiovascular complaints Respiratory: Respiratory: Reports no additional respiratory complaints Gastrointestinal: Gastrointestinal: Reports as per HPI, Denies abdominal pain, Denies diarrhea, Denies nausea and Denies vomiting Genitourinary: Genitourinary: Reports as per HPI, Reports abnormal vaginal bleeding ( Spotting), Denies hematuria, Denies nocturia, Denies genital lesions, Denies dysuria, Denies pelvic pain, Denies urinary incontinence and Denies vaginal discharge Comments: vaginal itching, vaginal irritation Musculoskeletal: Musculoskeletal: Reports no additional musculoskeletal complaints Neurologic: Reports system reviewed and no additional complaints, except as documented Psychiatric: Psychiatric: Reports as per HPI and Reports anxiety Endocrine: Endocrine: Reports no additional endocrine complaints Hematologic/Lymphatic: Hematologic/Lymphatic: Reports no additional hematologic/lymphatic complaints Allergic/Immunologic: Allergic/Immunologic: Reports no additional allergic/immunologic complaints [facility] Past Medical History Medical History (Updated 03/11/25 @ 10:15 by SACHA GloverC) ADHD Anxiety and depression Surgical History Surgical History (Updated 08/09/24 @ 10:28 by Lynda Soliz CMA) Hx laparoscopic cholecystectomy 07/27/[address] Chapin Family History Family History Sibling Depression Mother Anxiety Social History Social History (Updated 08/09/24 @ 10:17 by MARILEE Saravia) Smoking status: Former smoker Tobacco type: e-cigarettes/vaping Additional smoking assessment comments: QUIT 1 YR AGO, VAPED FOR 6 YRS Alcohol intake: current Alcohol use details: 2 PER MONTH Substance use: former Substance use type: marijuana Other substance usage details: A TEEN Do You Feel Safe in your Home?: Yes Lack of Transportation: No Lack of Food: Never True Current Housing: I Have Housing Concerned About Future Housing: No Difficulty Paying Gas/Electric Bills: No Difficulty Paying for Meds: No Currently Unemployed: No Education: High School Diploma/GED Difficulty w/ Childcare or Family Care: No Living arrangements: with family Additional living arrangements comments: with boyfriend and 2 children Gender identity (if verbalized by the patient): Female Sexual Orientation (if Verbalized by the Patient): Straight or Heterosexual Spiritual care concerns: No Exam Const: General: healthy appearing and no acute distress Nutritional Appearance: well nourished Orientation/consciousness: patient oriented x3 Limitations: no limitations Resp: Effort & Inspection: normal respiratory effort Auscultation: clear to auscultation bilaterally Cardio: Rate: regular rate Rhythm: regular rhythm GI: Inspection: distended GI Palp: Yes Soft to palpation, No Tenderness to palpation present (GI), No Guarding due to palpation present (GI) and No Rigid due to palpation Auscultation: normal bowel sounds : General: Yes bladder normal to palpation and Yes no CVA tenderness Back/Spine/Pelvis: Back: no CVA tenderness Skin: General skin exam: normal color Rashes: no rashes Wounds: no wounds Neuro: General: patient oriented x3 Speech: normal speech Gait exam (Neuro): Normal gait present Psych: Appearance: grossly normal Mental Status: mental status grossly normal Affect: normal affect Attitude: cooperative Course Course Level of Care: Express Care Visit Vital Signs Vital signs: Vital Signs Temperature 97.5 F L 03/11/25 09:46 Pulse Rate 95 03/11/25 09:46 Respiratory Rate 18 03/11/25 09:46 Blood Pressure 121/70 03/11/25 09:46 Pulse Oximetry 100 03/11/25 09:46 Oxygen Delivery Room Air 03/11/25 09:46 Temperature 97.5 F L 03/11/25 09:46 Pulse Rate 95 03/11/25 09:46 Respiratory Rate 18 03/11/25 09:46 Blood Pressure 121/70 03/11/25 09:46 Pulse Oximetry 100 03/11/25 09:46 Oxygen Delivery Room Air 03/11/25 09:46 MDM - Female Genitourinary MDM Narrative Medical decision making narrative: will wait for results for treatment for patient. Also recommended to follow up for blood work STD testing. The patient was evaluated by myself in the [facility] care. History is obtained from patient who is an independent historian and physical exam was performed. Available medical records were reviewed at this time. Exam findings show no acute concerns or changes; patient is non-toxic appearing and is in no distress. Patient is appropriate for outpatient treatment and follow-up. I have evaluated and discussed social determinants of health with the patient that could potentially impact subsequent diagnosis and treatment plans. Differential diagnosis and treatment plan were discussed with the patient. Patient agrees with discussion and after shared medical decision making agrees with plan of care. All questions were answered to the patient's satisfaction. Differential Diagnosis Differential diagnosis: Likely urinary tract infection, bacterial vaginosis, trichomoniasis, cervicitis, vaginitis, cystitis and dysmenorrhea Medical Records Attestation: I reviewed the patient's medical records. Lab Data Attestation: I reviewed the patient's lab results. Discharge Plan Discharge Clinical Impression: Vaginal irritation, Encounter for screening examination for sexually transmitted disease Patient Disposition: Home Condition: Stable Instructions: Antibiotic Form, Sexually Transmitted Diseases (ED), Safe Sex Practices (ED) Additional Instructions: will have tested your urine for chlamydia, gonorrhea, Trichomonas. You will get a call from the [facility] with results only if they are positive if you have questions or concerns you may call the [facility]. If you continue to have symptoms follow-up with high school home economics teacher or primary care physician for evaluation. Would recommend follow-up with primary care, high school home economics teacher, health department, clinic in [place], or [facility] in [place] for further STD testing or follow-up STD testing. They do have blood work testing available at these facilities. Few began to have significant abdominal pain, fever, chills, body aches, or any other concerning symptoms go to the emergency room for further evaluation of symptoms. Patient Language: Bulgarian Prescriptions: New fluconazole 150 mg tablet 150 mg PO ONCE Qty: 1 0RF Rx Instructions: as a single dose No Action drospirenone-ethinyl estradiol 3-0.02 mg tablet multivitamin [Daily-Romelia] Tablet 1 tablet PO DAILY PNV no.95-ferrous fumarate-FA [ Multivitamins] 28 mg iron- 800 mcg tablet 1 tablet PO DAILY CREATENE capsule See Rx Instructions BYMOUTH DAILY Rx Instructions: 1 TAB orally daily; Follow-up/Referrals: Gregg,MD Abad [Primary Care Provider, Unknown] Time of Disposition: 10:15
[2025-03-11 10:08] LABS: BEDSIDEPREGUCG Negative (Negative)
[2025-03-11 12:30] LABS: Trichomonas Vag PCR NOT DETECTED (NOT DETECTE)
== END 2025-03-11 10:22 | disposition home or self-care (01) ==
PROVIDERS: Emergency Provider Nurse Practitioner Family; PCP Family Medicine
DX: R10.2 Pelvic and perineal pain (principal); Z11.3 Encounter for screening for infections with a predominantly sexual mode of transmission; Z87.891 Personal history of nicotine dependence
CPT/HCPCS: 81025; 87491; 87591; 87661; 99213; G0463

== ENCOUNTER 2025-03-11 15:47 | Emergency (ER) | payer OTHER, SELFPAY ==
[2025-03-11 15:51] VITALS: BP 120/77; PULSE 99; RESP 17; TEMP 36.5; O2SAT 99
[2025-03-11 18:35] VITALS: BP 112/65; PULSE 88; RESP 18; TEMP 36.4; O2SAT 99
[2025-03-11] MEDS: hydrOXYzine HCL 12.5 MG TABLET PO (19:28)
[2025-03-11 19:33] LABS: BEDSIDEPREGUCG Negative (Negative)
[2025-03-11 19:41] LABS: Add Urine Microscopic? YES; Appearance Urine Cloudy (Clear); Glucose Urine UA Negative (Negative); Leukocyte Esterase Ur Trace LEU/UL (Negative); Nitrate Urine Negative (Negative); Non Pathogenic Casts 0-2; Specific Grav Ur 1.012 (1.001-1.035)
--- NOTE | 2025-03-11 19:41 | ED_ITS ---
HPI - General Adult General Chief complaint: Anxiety Stated complaint: panic attack Time Seen by Provider: 03/11/25 18:56 History of Present Illness HPI narrative: Patient is a 29-year-old female with uncontrolled anxiety who presents ER having anxiety attack. She is overwhelmed because she is concerned she has a sexually transmitted infection. She went to an urgent care today where they performed a pelvic exam and send samples. She is unable to access her patient portal because she put in a password wrong and is concerned what results may show. She was last sexually active 2 days ago with her boyfriend, but she was sexually active with a different partner a week and half ago when she was on a break. She thinks she has had some mild swelling and some typical discharge since then. No urinary frequency urgency or dysuria. No SI. Patient has been on hydroxyzine in the past but makes her very sleepy. She is scheduled for follow- up with psychiatrist later next month. Related Data Home Medications ?Medication ?Instructions ?Recorded ?Confirmed ?Last Taken ?Type CREATENE See Rx Instructions BYMOUTH DAILY 07/18/24 08/09/24 07/23/24 History multivitamin (Daily-Romelia tablet) 1 tablet PO DAILY 02/0208/09/24 07/23/24 History vit no.95-ferrous 1 tablet PO DAILY 07/18/24 08/09/24 07/23/24 History fumarate 28 mg-folic acid 800 mcg tablet ( Multivitamins) drospirenone 3 mg-ethinyl tablet 03/11/25 Unknown His tory estradiol 0.02 mg tablet Allergies Allergy/AdvReac Type Severity Reaction Status Date / Time Penicillins Allergy Intermediate rash Verified 03/11/25 15:55 Review of Systems Review of Systems: All systems reviewed & are unremarkable except as noted in HPI and below Constitutional: Constitutional: Reports no additional constitutional complaints ENT: Reports system reviewed and no additional complaints, except as documented Genitourinary: Genitourinary: Reports no additional female genitourinary complaints Psychiatric: Psychiatric: Reports no additional psychiatric complaints [facility] Past Medical History Medical History (Updated 03/11/25 @ 19:46 by Arsalan Keene MD) ADHD Anxiety and depression Surgical History Surgical History (Updated 08/09/24 @ 10:28 by Lynda Soliz CMA) Hx laparoscopic cholecystectomy 07/27/[address] Chapin Family History Family History Sibling Depression Mother Anxiety Social History Social History (Updated 08/09/24 @ 10:17 by Keyona Zuniga, [facility]) Smoking status: Former smoker Tobacco type: e-cigarettes/vaping Additional smoking assessment comments: QUIT 1 YR AGO, VAPED FOR 6 YRS Alcohol intake: current Alcohol use details: 2 PER MONTH Substance use: former Substance use type: marijuana Other substance usage details: A TEEN Do You Feel Safe in your Home?: Yes Lack of Transportation: No Lack of Food: Never True Current Housing: I Have Housing Concerned About Future Housing: No Difficulty Paying Gas/Electric Bills: No Difficulty Paying for Meds: No Currently Unemployed: No Education: High School Diploma/GED Difficulty w/ Childcare or Family Care: No Living arrangements: with family Additional living arrangements comments: with boyfriend and 2 children Gender identity (if verbalized by the patient): Female Sexual Orientation (if Verbalized by the Patient): Straight or Heterosexual Spiritual care concerns: No Exam Narrative: GENERAL: Well-appearing, well-nourished, and in no acute distress. HEAD: Normocephalic, atraumatic. ENT: Mucous membranes moist. CHEST: Clear to auscultation. No respiratory distress. HEART: Regular rate and rhythm. Normal peripheral pulses. ABDOMEN: Soft, nontender, nondistended. Declines pelvic exam. EXTREMITIES: Normal range of motion. No edema. NEURO: Alert and oriented x3. PSYCH: Mild anxiousness, no SI. Course Course Emergency Course: Informed patient of results of GC/chlamydia/Trichomonas which are all negative. Urinalysis shows 1+ bacteria and +LE, will give 3 days cephalexin. She was given a half dose of hydroxyzine and she will be prescribed with a similar prescription. Vital Signs Vital signs: Vital Signs Temperature 97.7 F 03/11/25 15:51 Pulse Rate 99 03/11/25 15:51 Respiratory Rate 17 03/11/25 15:51 Blood Pressure 120/77 03/11/25 15:51 Pulse Oximetry 99 03/11/25 15:51 Oxygen Delivery Room Air 03/11/25 15:51 Temperature 97.6 F 03/11/25 18:35 Pulse Rate 88 03/11/25 18:35 Respiratory Rate 18 03/11/25 18:35 Blood Pressure 112/65 03/11/25 18:35 Pulse Oximetry 99 03/11/25 18:35 Oxygen Delivery Room Air 03/11/25 15:51 Medical Decision Making Vital Signs Vital Signs: Vital Signs Temperature 97.7 F 03/11/25 15:51 Pulse Rate 99 03/11/25 15:51 Respiratory Rate 17 03/11/25 15:51 Blood Pressure 120/77 03/11/25 15:51 Pulse Oximetry 99 03/11/25 15:51 Oxygen Delivery Room Air 03/11/25 15:51 Temperature 97.6 F 03/11/25 18:35 Pulse Rate 88 03/11/25 18:35 Respiratory Rate 18 03/11/25 18:35 Blood Pressure 112/65 03/11/25 18:35 Pulse Oximetry 99 03/11/25 18:35 Oxygen Delivery Room Air 03/11/25 15:51 Lab Data Labs: Lab Results 03/11/25 03/11/25 Range/Units 19:29 19:32 Urine Color Yellow (Yellow) Urine Appearance Cloudy H (Clear) Urine pH 6.0 (5.0-9.0) Ur Specific [place] 1.012 (1.001-1.035) Urine Protein Negative (Negative) mg/dL Urine Glucose (UA) Negative (Negative) mg/dL Urine Ketones Negative (Negative) mg/dL Ur Blood (Man) Negative (Negative) Urine Nitrate Negative (Negative) Urine Bilirubin Negative (Negative) Urine Urobilinogen 0.2 (<2.0) mg/dL Leukocyte Esterase Rfl Trace H (Negative) RUSSEL/UL Urine RBC 0-2 (0-2) /hpf Urine WBC 0-5 (0-3) /hpf Ur Squamous Epith Cells Occasional (Few) /hpf Urine Bacteria 1+ H /hpf Urine Casts 0-2 POC Urine HCG, Qual Negative (Negative) Discharge Plan Discharge Clinical Impression: Anxiety, UTI (urinary tract infection) Patient Disposition: Home Condition: Stable Instructions: Antibiotic Form, Anxiety (ED) Additional Instructions: Return the ER if you have chest pain shortness of breath, he can not keep down food water, you lose consciousness, have additional concerns. Patient Language: South Sudanese Prescriptions: New cephalexin 500 mg capsule 500 mg PO Q12H Qty: 6 0RF hydroxyzine HCl 25 mg tablet 12.5 mg PO TID PRN (Reason: anxiety) Qty: 14 0RF No Action drospirenone-ethinyl estradiol 3-0.02 mg tablet fluconazole 150 mg tablet 150 mg PO ONCE Qty: 1 0RF Rx Instructions: as a single dose multivitamin [Daily-Romelia] Tablet 1 tablet PO DAILY PNV no.95-ferrous fumarate-FA [ Multivitamins] 28 mg iron- 800 mcg tablet 1 tablet PO DAILY CREATENE capsule See Rx Instructions BYMOUTH DAILY Rx Instructions: 1 TAB orally daily; Follow-up/Referrals: Gregg,MD Abad [Primary Care Provider, Unknown] - 1 Week
== END 2025-03-11 19:57 | disposition home or self-care (01) ==
PROVIDERS: Emergency Provider Emergency Medicine; PCP Family Medicine
DX: F41.9 Anxiety disorder, unspecified (principal); N39.0 Urinary tract infection, site not specified; F90.9 Attention-deficit hyperactivity disorder, unspecified type; Z87.891 Personal history of nicotine dependence; Z90.49 Acquired absence of other specified parts of digestive tract; Z79.3 Long term (current) use of hormonal contraceptives
CPT/HCPCS: 81001; 81025; 99283; A9270

== ENCOUNTER 2025-03-20 16:06 | Emergency (ER) | payer OTHER, SELFPAY ==
[2025-03-20 16:13] VITALS: BP 108/70; PULSE 81; RESP 16; TEMP 37; O2SAT 100
--- NOTE | 2025-03-20 16:41 | ED_ITS ---
HPI - Abdominal Pain General Chief Complaint: Abdominal Pain Stated Complaint: Abdominal Pain Source: patient Mode of arrival: ambulatory Limitations: no limitations History of Present Illness HPI narrative: Pt presents for evaluation of RLQ pain for the past week. Symptom onset 1 week ago. Pain is intermittent, lasting seconds, with 10-15 reported episodes for today. History of similar symptoms. She was evaluated in the emergency department on 03/11/2025 concerns for vaginal infection. She was given prescriptions for cephalexin and Diflucan. She did not take the cephalexin. She did take the Diflucan and states that her yeast infection resolved. She denies any urinary symptoms, vaginal bleeding or discharge. LMP unknown as she is on oral contraception, with which she is adherent. She denies any fever, chills, nausea, vomiting, change in bowel pattern, vaginal bleeding/discharge. Surgical history positive for cholecystectomy and bilateral salpingectomy. Related Data Home Medications ?Medication ?Instructions ?Recorded ?Confirmed ?Last Taken ?Type drospirenone 3 mg-ethinyl tablet 03/11/25 Unknown His tory estradiol 0.02 mg tablet Allergies Allergy/AdvReac Type Severity Reaction Status Date / Time Penicillins Allergy Intermediate rash Verified 03/20/25 16:15 Review of Systems Review of Systems: CONSTITUTIONAL: Denies fever, chills, or sweats. EYES: Denies visual changes, redness, or discharge. ENT: Denies rhinorrhea, congestion, sore throat, or otalgia. CARDIOVASCULAR: Denies chest pain, palpitations, or edema. RESPIRATORY: Denies cough or dyspnea. GASTROINTESTINAL: Reports RLQ abdominal pain. Denies nausea, vomiting, or diarrhea. GENITOURINARY: Denies dysuria or hematuria. Denies vaginal bleeding and discharge. SKIN: Denies rash or itching. MUSCULOSKELETAL: Denies back pain, joint pain, or myalgia. NEUROLOGIC: Denies headache, numbness, dizziness, or weakness. PSYCHIATRIC: Denies anxiety or depression. [facility] Past Medical History Medical History ADHD Anxiety and depression Surgical History Surgical History (Updated 03/20/25 @ 16:46 by Joaquin Roldan, VON, JORI) History of salpingectomy Hx laparoscopic cholecystectomy 07/27/[address] Chapin Family History Family History Sibling Depression Mother Anxiety Social History Social History Smoking status: Former smoker Tobacco type: e-cigarettes/vaping Additional smoking assessment comments: QUIT 1 YR AGO, VAPED FOR 6 YRS Alcohol intake: current Alcohol use details: 2 PER MONTH Substance use: former Substance use type: marijuana Other substance usage details: A TEEN Do You Feel Safe in your Home?: Yes Lack of Transportation: No Lack of Food: Never True Current Housing: I Have Housing Concerned About Future Housing: No Difficulty Paying Gas/Electric Bills: No Difficulty Paying for Meds: No Currently Unemployed: No Education: High School Diploma/GED Difficulty w/ Childcare or Family Care: No Living arrangements: with family Additional living arrangements comments: with boyfriend and 2 children Gender identity (if verbalized by the patient): Female Sexual Orientation (if Verbalized by the Patient): Straight or Heterosexual Spiritual care concerns: No Exam Narrative: GENERAL: Well-appearing, well-nourished, and in no acute distress. HEAD: Normocephalic, atraumatic. EYES: PERRLA and EOMI. ENT: Nares clear, no rhinorrhea or epistaxis. Mucous membranes moist. Oropharynx without tonsillar hypertrophy exudate or other lesions. Bilateral TMs pearly gomez nonbulging NECK: Supple. No adenopathy or masses. No carotid bruits or JVD CHEST: Clear to auscultation. No respiratory distress. No wheezes rales or rhonchi HEART: Regular rate and rhythm. No murmur heard. Normal peripheral pulses. ABDOMEN: Soft, nondistended, normal active bowel sounds. RLQ tenderness without rebound or guarding. EXTREMITIES: Normal range of motion. No edema. SKIN: Warm, dry, no rash. NEURO: No focal deficits. Alert and oriented x3. PSYCH: Normal mood and affect. Course Course Emergency Course: This is a 29-year-old female who presented for evaluation of right lower quadrant pain. She is tender on exam. I recommended she be transferred to the hospital for further evaluation. She is agreeable with this plan. [facility] sore facility of choice. Contacted the ED at [facility] and spoke with Dr. Roman, who accepts pt to the Dept there. Pt transferred via private vehicle. Level of Care: Express Care Visit Vital Signs Vital signs: Vital Signs Temperature 37.0 C 03/20/25 16:13 Pulse Rate 81 03/20/25 16:13 Respiratory Rate 16 03/20/25 16:13 Blood Pressure 108/70 03/20/25 16:13 Pulse Oximetry 100 03/20/25 16:13 Oxygen Delivery Room Air 03/20/25 16:13 Temperature 37.0 C 03/20/25 16:13 Pulse Rate 81 03/20/25 16:13 Respiratory Rate 16 03/20/25 16:13 Blood Pressure 108/70 03/20/25 16:13 Pulse Oximetry 100 03/20/25 16:13 Oxygen Delivery Room Air 03/20/25 16:13 Discharge Plan Discharge Clinical Impression: Abdominal pain Patient Disposition: Acute Care Hospital Condition: Stable Instructions: Abdominal Pain (ED) Patient Language: Syriac Prescriptions: No Action drospirenone-ethinyl estradiol 3-0.02 mg tablet hydroxyzine HCl 25 mg tablet 12.5 mg PO TID PRN (Reason: anxiety) Qty: 14 0RF Follow-up/Referrals: UNKNOWN,DOCTOR [Primary Care Provider] Time of Disposition: 16:41
--- OUTSIDE RECORDS SUMMARY | 2025-03-20 17:05 | XMS_ITS | Patient Health Record ---
Author Organization [facility] As [employer] [facility] Address [address] [place] [address] Care Team Providers Care Granite Countertop Installer Name Role Phone Lester Hartman Unavailable [phone] Reason For Referral No Information Medications Medication [...] Coverage End Date [employer] - [employer] [address] [place] [address] [id number] RACH BANSAL Self - patient is the insured
== END 2025-03-20 16:41 | disposition short-term general hospital (02) ==
PROVIDERS: Emergency Provider Nurse Practitioner
DX: R10.31 Right lower quadrant pain (principal); Z87.891 Personal history of nicotine dependence
CPT/HCPCS: 99212; G0463

== ENCOUNTER 2025-03-20 17:17 | Emergency (ER) | payer OTHER, SELFPAY ==
--- NOTE | ~2025-03-20 | CT_ITS ---
CT abdomen pelvis w con Clinical History: RLQ pain . Comparison: 06/04/2023 Technique: Axial images lung bases to symphysis pubis IV contrast information not listed in PACS Coronal, sagittal reformats CT images acquired with automatic exposure control for dose reduction DLP: 271 mGy-cm Findings: Lung bases: Clear. Visualized heart and pericardium: Unremarkable. Liver: Steatosis. Enlarged. Gallbladder: Removed. Spleen: Unremarkable. Pancreas: Unremarkable. Adrenal glands: Unremarkable. Kidneys: Right kidney- No hydronephrosis. No renal stones. Left kidney- No hydronephrosis. No renal stones. Distal esophagus/stomach: Unremarkable. Small bowel loops: Normal caliber and wall thickness. Colon: Normal caliber and wall thickness. Normal RLQ appendix. Nodes: No enlarged nodes. Peritoneum: No ascites. No free air. Urinary bladder: Mild wall thickening but under distended. Uterus: Unremarkable. Adnexa: No masses. Bones: No acute bony abnormality. Soft tissues: Unremarkable. Aorta: No aneurysm or dissection. IVC: Unremarkable. Main portal vein/SMV/splenic vein: Patent. IMPRESSION: 1. No acute findings. Reviewed, dictated and finalized at location R. IMPRESSION: 1. No acute findings.
[2025-03-20 17:18] VITALS: BP 119/71; PULSE 80; RESP 16; TEMP 37; O2SAT 100
[2025-03-20 17:39] LABS: BEDSIDEPREGUCG Negative (Negative)
[2025-03-20 17:52] LABS: Hematocrit 38.6 % (37.0-47.0); Hemoglobin 12.5 g/dL (12.0-15.0); Immature Granulocyte Percent A 0.3 % (0-0.5); Lymphocytes Absolute Auto 2.00 K/mm3 (0.9-3.2); Mean Corpuscular HGB Conc 32.4 g/dl (32-36); Mean Corpuscular Hemoglobin 30.1 pg (26-34); Mean Corpuscular Volume 93.0 fl (80-100); Nucleated Red Blood Cells Absolute Auto 0.000 K/mm3 (0.0-0.012); Nucleated Red Blood Cells Perc 0.0 % (0.0-0.2); Platelet Count Result 202 k/mm3 (150-375); Red Blood Count 4.15 M/mm3 (4.2-5.4); White Blood Count 6.4 K/mm3 (4.5-10.0)
[2025-03-20 17:59] LABS: Add Urine Microscopic? YES; Appearance Urine Clear (Clear); Glucose Urine UA Negative (Negative); Leukocyte Esterase Ur Trace LEU/UL (Negative); Nitrate Urine Negative (Negative); Non Pathogenic Casts 0-2; Specific Grav Ur 1.024 (1.001-1.035)
--- NOTE | 2025-03-20 18:05 | ED_ITS ---
HPI - Abdominal Pain General Chief Complaint: Abdominal Pain Stated Complaint: abd pain Time Seen by Provider: 03/20/25 17:27 Source: patient Mode of arrival: ambulatory Limitations: no limitations History of Present Illness HPI narrative: This is a 29 year old female that presents to the ER for right lower quadrant abdominal pain. Ongoing intermittently over the last week. Seenat urgent care and sent to the ER for further evaluation. Denies fevers, vomiting, diarrhea, dysuria. Related Data Home Medications ?Medication ?Instructions ?Recorded ?Confirmed ?Last Taken ?Type drospirenone 3 mg-ethinyl tablet 03/11/25 Unknown His tory estradiol 0.02 mg tablet Allergies Allergy/AdvReac Type Severity Reaction Status Date / Time Penicillins Allergy Intermediate rash Verified 03/20/25 16:15 Review of Systems 2 Review of Systems: All systems reviewed & are unremarkable except as noted in HPI and below PMFSH Past Medical History Medical History ADHD Anxiety and depression Surgical History Surgical History (Updated 03/20/25 @ 16:46 by DANIA AlfonsoP, ) History of salpingectomy Hx laparoscopic cholecystectomy 07/27/[address] Chapin Family History Family History Sibling Depression Mother Anxiety Social History Social History Smoking status: Former smoker Tobacco type: e-cigarettes/vaping Additional smoking assessment comments: QUIT 1 YR AGO, VAPED FOR 6 YRS Alcohol intake: current Alcohol use details: 2 PER MONTH Substance use: former Substance use type: marijuana Other substance usage details: A TEEN Do You Feel Safe in your Home?: Yes Lack of Transportation: No Lack of Food: Never True Current Housing: I Have Housing Concerned About Future Housing: No Difficulty Paying Gas/Electric Bills: No Difficulty Paying for Meds: No Currently Unemployed: No Education: High School Diploma/GED Difficulty w/ Childcare or Family Care: No Living arrangements: with family Additional living arrangements comments: with boyfriend and 2 children Gender identity (if verbalized by the patient): Female Sexual Orientation (if Verbalized by the Patient): Straight or Heterosexual Spiritual care concerns: No Exam 2 Narrative: GENERAL: Well-appearing, well-nourished, and in no acute distress. HEAD: Normocephalic, atraumatic. EYES: EOMI. CHEST: Clear to auscultation. No respiratory distress. No wheezes rales or rhonchi HEART: Regular rate and rhythm. No murmur heard. Normal peripheral pulses. ABDOMEN: Soft, nontender, nondistended, normal active bowel sounds. EXTREMITIES: Normal range of motion. No edema. SKIN: Warm, dry, no rash. NEURO: No focal deficits. Alert and oriented x3. PSYCH: Normal mood and affect Course Vital Signs Vital signs: Vital Signs Temperature 98.6 F 03/20/25 17:18 Pulse Rate 80 03/20/25 17:18 Respiratory Rate 16 03/20/25 17:18 Blood Pressure 119/71 03/20/25 17:18 Pulse Oximetry 100 03/20/25 17:18 Oxygen Delivery Room Air 03/20/25 17:18 Temperature 98.6 F 03/20/25 17:18 Pulse Rate 80 03/20/25 17:18 Respiratory Rate 16 03/20/25 17:18 Blood Pressure 119/71 03/20/25 17:18 Pulse Oximetry 100 03/20/25 17:18 Oxygen Delivery Room Air 03/20/25 17:18 MDM - Abdominal Pain MDM Narrative Medical decision making narrative: Patient presents emergency department for right lower quadrant abdominal pain. Ongoing over the last week. She is afebrile and nontoxic appearing. Cbc without leukocytosis. Metabolic panel without concerning findings. Urine without evidence of infection. test is negative. CT abdomen pelvis without acute findings. Patient updated on her workup and agrees with plan of care. She is to follow up with primary provider. She was given warnings to return to the ER Differential Diagnosis Differential diagnosis: Likely acute appendicitis, calculus of kidney, constipation and other (UTI) Lab Data Attestation: I reviewed the patient's lab results. 03/20/25 17:43 03/20/25 17:43 Labs: Lab Results 03/20/25 03/20/25 03/20/25 Range/Units 17:37 17:42 17:43 WBC 6.4 (4.5-10.0) K/mm3 RBC 4.15 L (4.2-5.4) M/mm3 Hgb 12.5 (12.0-15.0) g/dL Hct 38.6 (37.0-47.0) % MCV 93.0 (80-100) fl MCH 30.1 (26-34) pg MCHC 32.4 (32-36) g/dl RDW 11.8 (11.5-14.5) % Plt Count 202 (150-375) k/mm3 MPV 10.3 (7.4-10.4) fl Immature Gran % (Auto) 0.3 (0-0.5) % Neut % (Auto) 55.1 (45.5-73.1) % Lymph % (Auto) 31.2 (18.3-44.2) % Baker % (Auto) 10.8 H (2.6-8.5) % Eos % (Auto) 2.0 (0-4.4) % Baso % (Auto) 0.6 (0.2-1.2) % Lymph # (Auto) 2.00 (0.9-3.2) K/mm3 Baker # (Auto) 0.7 H (0.1-0.6) K/mm3 Eos # (Auto) 0.1 (0-0.3) K/mm3 Baso # (Auto) 0.0 (0.0-0.1) K/mm3 Abs Immat Gran (auto) 0.02 (0.00-0.031) K/mm3 Absolute Neuts (auto) 3.5 (1.3-6.7) K/mm3 Absolute Nucleated RBC 0.000 (0.0-0.012) K/mm3 Nucleated RBC % 0.0 (0.0-0.2) % Sodium 136 L (137-145) mmol/L Potassium 3.8 (3.4-5.0) mmol/L Chloride 101 (98-107) mmol/L Carbon Dioxide 25 (22-30) mmol/L Anion Gap 10 (4-12) mmol/L BUN 16 (7-17) mg/dL Creatinine 0.88 (0.7-1.0) mg/dL Estim Creat Clear Calc 76 ml/min Estimated GFR > 60 (59 - ) Glucose 94 (65-110) mg/dL Calcium 9.3 (8.4-10.2) mg/dL Total Bilirubin 0.8 (0.2-1.3) mg/dL AST 27 (14-36) U/L ALT 17 (6-35) U/L Alkaline Phosphatase 49 (38-126) U/L Total Protein 8.0 (6.3-8.2) g/dL Albumin 4.6 (3.5-5.1) g/dL Lipase 93 (23-300) U/L Urine Color Yellow (Yellow) Urine Appearance Clear (Clear) Urine pH 6.5 (5.0-9.0) Ur Specific [place] 1.024 (1.001-1.035) Urine Protein Negative (Negative) mg/dL Urine Glucose (UA) Negative (Negative) mg/dL Urine Ketones Negative (Negative) mg/dL Ur Blood (Man) Negative (Negative) Urine Nitrate Negative (Negative) Urine Bilirubin Negative (Negative) Urine Urobilinogen 0.2 (<2.0) mg/dL Leukocyte Esterase Rfl Trace H (Negative) RUSSEL/UL Urine RBC 0-2 (0-2) /hpf Urine WBC 0-5 (0-3) /hpf Ur Squamous Epith Cells Occasional (Few) /hpf Urine Bacteria None seen /hpf Urine Casts 0-2 POC Urine HCG, Qual Negative (Negative) Imaging Data Radiologist's impression: ITS Impressions Abdomen/Pelvis CT 03/20/25 18:31 IMPRESSION: 1. No acute findings. Critical Care Time Critical Care Time Critical Care Time: No Discharge Plan Discharge Clinical Impression: Abdominal pain, right lower quadrant Patient Disposition: Home Condition: Stable Instructions: Abdominal Pain (ED) Additional Instructions: Return to the ER if you experience fever, abdominal pain with nausea and vomiting, you are unable to keep down liquids or solids, blood in the stool, pain or burning with urination, blood in the urine or any other symptoms that are concerning to you Follow up with your primary care doctor Patient Language: Zambian Prescriptions: No Action drospirenone-ethinyl estradiol 3-0.02 mg tablet hydroxyzine HCl 25 mg tablet 12.5 mg PO TID PRN (Reason: anxiety) Qty: 14 0RF Follow-up/Referrals: PHYSICIAN,EXPANDED FUNCTION DENTAL ASSISTANT [Primary Care Provider, Internal Medicine] Elmer Ramachandran MD [Physician, Family Practice]
[2025-03-20 18:08] LABS: Alanine Aminotransferase 17 U/L (6-35); Albumin Level 4.6 g/dL (3.5-5.1); Alkaline Phosphatase 49 U/L (38-126); Anion Gap 10 mmol/L (4-12); Aspartate Amino Transferase 27 U/L (14-36); Bilirubin,Total 0.8 mg/dL (0.2-1.3); Blood Urea Nitrogen 16 mg/dL (7-17); Calcium 9.3 mg/dL (8.4-10.2); Carbon Dioxide 25 mmol/L (22-30); Chloride 101 mmol/L (98-107); Estimated CRCL calculation 76 ml/min; Estimated Glomerular Filt Rate > 60; Glucose 94 mg/dL (65-110); Lipase 93 U/L (23-300); Potassium 3.8 mmol/L (3.4-5.0); Sodium 136 mmol/L (137-145); Total Protein 8.0 g/dL (6.3-8.2)
[2025-03-20 19:23] VITALS: BP 118/74; PULSE 81; RESP 16; TEMP 36.9; O2SAT 99
== END 2025-03-20 19:25 | disposition home or self-care (01) ==
PROVIDERS: Emergency Provider Physician Assistant
DX: R10.31 Right lower quadrant pain (principal); F41.9 Anxiety disorder, unspecified; Z87.891 Personal history of nicotine dependence; Z90.79 Acquired absence of other genital organ(s); Z90.49 Acquired absence of other specified parts of digestive tract; Z79.3 Long term (current) use of hormonal contraceptives
CPT/HCPCS: 36415; 74177; 80053; 81001; 81025; 83690; 85025; 99284; Q9967

== ENCOUNTER 2025-04-16 16:35 | Emergency (ER) | payer OTHER, SELFPAY ==
--- OUTSIDE RECORDS SUMMARY | 2025-04-16 16:37 | XMS_ITS | Patient Health Record ---
Author Organization [facility] As [employer] [facility] Address [address] [place] [address] Care Team Providers Care Head Tennis Coach Name Role Phone Lester Hartman Unavailable [phone] Reason For Referral No Information Medications Medication [...] Coverage End Date [employer] - [employer] [address] [place] [address] [id number] RACH BANSAL Self - patient is the insured
--- NOTE | 2025-04-16 16:39 | ED.SKABFB ---
HPI - Skin/Abscess/Foreign Bdy General Chief complaint: Skin/Abscess/Foreign Body Stated complaint: Insect Bite LT Leg Time Seen by Provider: 04/16/25 16:40 Source: patient Mode of arrival: ambulatory Limitations: no limitations History of Present Illness HPI narrative: Buffy is a 29-year-old female patient presenting to the clinic today with complaints of a possible infected insect bite to her left lower leg x1 days. She reports area was initially itchy and burning and now it is just burning. Has had some yellow discharge coming from the to insect bite areas. She has been scratching at the area. She does not know what type of insect has bit her. She denies any fevers, chills, body aches. Has not taken any medications to treat her symptoms. Related Data Home Medications ?Medication ?Instructions ?Recorded ?Confirmed ?Last Taken ?Type drospirenone 3 mg-ethinyl tablet 03/11/25 Unknown History estradiol 0.02 mg tablet Allergies Allergy/AdvReac Type Severity Reaction Status Date / Time Penicillins Allergy Intermediate rash Verified 04/16/25 16:40 Review of Systems Review of Systems: Pertinent positives per HPI. Patient denies any fever, chills, rash, headache, visual changes, dizziness, cough, runny nose, sore throat, shortness of breath, chest pain, palpitations, nausea, vomiting, diarrhea, constipation, abdominal pain, or any urinary issues. [facility] Past Medical History Medical History ADHD Anxiety and depression Surgical History Surgical History (Updated 03/20/25 @ 16:46 by DANIA AlfonsoP, ) History of salpingectomy Hx laparoscopic cholecystectomy 07/27/[address] Chapin Family History Family History Sibling Depression Mother Anxiety Social History Social History Smoking status: Former smoker Tobacco type: e-cigarettes/vaping Additional smoking assessment comments: QUIT 1 YR AGO, VAPED FOR 6 YRS Alcohol intake: current Alcohol use details: 2 PER MONTH Substance use: former Substance use type: marijuana Other substance usage details: A TEEN Do You Feel Safe in your Home?: Yes Lack of Transportation: No Lack of Food: Never True Current Housing: I Have Housing Concerned About Future Housing: No Difficulty Paying Gas/Electric Bills: No Difficulty Paying for Meds: No Currently Unemployed: No Education: High School Diploma/GED Difficulty w/ Childcare or Family Care: No Living arrangements: with family Additional living arrangements comments: with boyfriend and 2 children Gender identity (if verbalized by the patient): Female Sexual Orientation (if Verbalized by the Patient): Straight or Heterosexual Spiritual care concerns: No Comments At the time of my signature, I reviewed and agree with the nursing past medical, surgical, social, and family history. There is no relevant family history pertinent to the patient complaint. Exam Narrative: General: Well-developed, well nourished, in no apparent distress Head: Normocephalic, atraumatic. Cardio: Regular rate and rhythm, s1 and s2 normal, no murmur appreciated. Resp: Clear to auscultation bilaterally, no rhonchi, rales, wheezing or rubs. Integumentary: [place], warm, and dry, 2 insect bites with yellow crusty discharge to the left lower leg with mild induration with redness streaking up the leg. Mild erythema without palpable abscess. Course Course Emergency Course: Portions of this record may have been created with voice recognition software. Level of Care: Express Care Visit Vital Signs Vital signs: Vital signs reviewed MDM - Skin/Abscess/Foreign Bdy MDM Narrative Medical decision making narrative: At the time of visit patient is resting comfortably on the exam table. Patient appears to be nontoxic. Possible infected insect bite to her left lower leg x1 days. She reports area was initially itchy and burning and now it is just burning. Has had some yellow discharge coming from the to insect bite areas. She has been scratching at the areas. She does not know what type of insect has bit her. She denies any fevers, chills, body aches. Has not taken any medications to treat her symptoms. Reports that the redness seems to be spreading up her leg. On exam patient has 2 insect bites with yellow crusty discharge to the left lower leg with mild induration with redness streaking up the leg. Mild erythema without palpable abscess. Plan: I suspect patient has infected insect bite to the left lower leg. Prescriptions were sent for mupirocin cream and doxycycline. Patient has allergies to penicillins. Supportive measures were discussed with the patient and they voiced understanding discharge instructions and agrees to treatment plan. Return precautions reviewed Differential Diagnosis Differential diagnosis: Likely abscess of skin or subcutaneous tissue, viral exanthem, dermatophytosis, urticaria, herpes zoster, allergic reaction to drug, cellulitis, eczema, insect bites, impetigo and contact dermatitis Discharge Plan Discharge Clinical Impression: Infected insect bite Qualifiers: Encounter type: initial encounter Qualified Code(s): W57.XXXA - Bitten or stung by nonvenomous insect and other nonvenomous arthropods, initial encounter Patient Disposition: Home Condition: Stable Instructions: Antibiotic Form, Insect Bite or Sting (ED) Additional Instructions: Keep wound clean and dry Wash area daily with soap and water Apply mupirocin cream and take doxycycline as prescribed May apply hydrocortisone cream to the area if it is itchy Watch for signs and symptoms of infection- redness, streaking, swelling, purulent discharge, or increase in pain. Follow up with your PCP for suture removal or return to the Express care. Patient Language: Samoan Prescriptions: New doxycycline monohydrate 100 mg capsule 100 mg PO BID 7 Days Qty: 14 0RF mupirocin [Centany] 2 % ointment 1 applic topical BID 7 Days Qty: 22 0RF No Action drospirenone-ethinyl estradiol 3-0.02 mg tablet hydroxyzine HCl 25 mg tablet 12.5 mg PO TID PRN (Reason: anxiety) Qty: 14 0RF Follow-up/Referrals: Gregg,MD Abad [Primary Care Provider, Unknown] Time of Disposition: 16:47 Quality NIHSS Nursing Documentation ED NIHSS nursing documentation: reviewed/agree
[2025-04-16 16:40] VITALS: BP 107/59; PULSE 70; RESP 18; TEMP 36.8; O2SAT 100
== END 2025-04-16 16:51 | disposition home or self-care (01) ==
PROVIDERS: Emergency Provider Nurse Practitioner Family; PCP Family Medicine
DX: S80.862A Insect bite (nonvenomous), left lower leg, initial encounter (principal); L08.9 Local infection of the skin and subcutaneous tissue, unspecified; W57.XXXA Bitten or stung by nonvenomous insect and other nonvenomous arthropods, initial encounter; Z87.891 Personal history of nicotine dependence
CPT/HCPCS: 99213; G0463